=== PATIENT | male | born 1980 | race Caucasian/White ===

== ENCOUNTER 2023-10-30 13:33 | Emergency (ER) | payer OTHER, SELFPAY ==
[2023-10-30 13:34] VITALS: BP 134/93; PULSE 85; RESP 18; TEMP 36.8; O2SAT 98; BMI 29.8
[2023-10-30 14:39] LABS: Basophils # 0.2 K/mm3 (0-0.2); Basophils % 2.8 % (0.1-2.0); Eosinophils # 0.2 K/mm3 (0.0-0.4); Eosinophils % 2.3 % (0.1-12.0); Hematocrit 50.4 % (42.0-52.0); Hemoglobin 16.5 g/dL (14.1-18.0); Lymphocytes # 2.1 K/mm3 (0.7-4.5); Lymphocytes % 30.4 % (10-50); Mean Corpuscular HGB Conc 32.7 g/dL (31.8-35.4); Mean Corpuscular Hemoglobin 31.5 pg (27.0-31.2); Mean Corpuscular Volume 96.5 fl (80-94); Mean Platelet Volume 8.4 fl (7.4-10.4); Monocytes # 0.4 K/mm3 (0.1-1.0); Monocytes % 5.7 % (1.7-9.3); Neutrophils % 58.9 % (37.0-80.0); Platelet Count 220 K/mm3 (142-424); Red Blood Count 5.23 M/mm3 (4.60-6.20); Red Cell Distribution Width 13.3 % (11.5-17.5); White Blood Count 6.8 K/mm3 (4.8-10.8)
[2023-10-30 14:41] LABS: Chloride 105 mmol/L (98-107); Potassium 4.1 mmoL/L (3.5-5.1); Sodium 140 mmol/L (136-145)
[2023-10-30 14:43] LABS: Blood Urea Nitrogen 26 mg/dl (9-20); Creatinine Clearance Estimated 123 mL/min (50-200); Estimated Glomerular Filt Rate 73 ml/min (>60); GFR (African American) 89 ML/MIN (>60)
[2023-10-30 14:44] LABS: Alanine Aminotransferase 214 U/L (12-78); Albumin Level 4.4 g/dl (3.5-5.0); Albumin/Globulin Ratio 1.1 (1.1-1.8); Alkaline Phosphatase 63 U/L (38-126); Anion Gap 8.1 mEq/L (5-15); Aspartate Amino Transferase 119 U/L (17-59); Bilirubin,Total 0.3 mg/dl (0.2-1.3); Calcium 9.9 mg/dl (8.4-10.2); Carbon Dioxide 31 mmol/L (22.0-30.0); Globulin 3.9 g/dL (1.3-3.2); Glucose 105 mg/dl (74-100); Total Protein,Serum 8.3 g/dl (6.3-8.2)
--- NOTE | 2023-10-30 15:38 | HMH.EDGENADL ---
Discharge Plan Disposition Patient Disposition: Home, Self-Care Prescriptions Prescriptions: New sulfamethoxazole-trimethoprim [Bactrim DS] 800-160 mg tablet 1 tab PO BID 5 Days Qty: 10 0RF No Action sulfamethoxazole-trimethoprim 1 EACH tablet 1 ea PO BID nystatin 500,000 UNIT/5 ML suspension 4 - 6 ml PO QID Qty: 240 0RF Rx Instructions: 4-6ml Po QID for 10 days. Swish and hold in mouth as long as possible and spit out azithromycin [Zithromax] 250 MG tablet 250 mg PO UD DOSE PK Qty: 6 0RF Rx Instructions: Take two (2) tablets today, then one (1) tablet days #2 thru #5 prednisone 10 MG tablets,dose pack 10 mg PO UD DOSE PK Qty: 21 0RF Rx Instructions: taper dose pack as directed Referrals Follow up/Referrals: Provider,Referral, MD [Primary Care Provider] - See instructions Activity Restrictions/Add. Instructions Additional Instructions/Restrictions: Call your family doctor to establish care for this visit to the emergency department and schedule follow-up within 48 hours to ensure improvement. If you have any worsening of your condition or any other concerning signs or symptoms, return to the emergency department or your primary care doctor for further evaluation. Clinical Impressions Clinical Impression: Cellulitis of right thigh Instructions Patient Instructions: DI for Skin Abscess Discharge ED Provider: Dean Schultz General Adult HPI General Chief complaint: Skin/Abscess/Foreign Body Stated complaint: spider bite Time Seen by Provider: 10/30/23 15:01 Mode of Arrival: Ambulatory Source of Information: Patient Limitations: No Limitations Description of Symptoms (Recalled from ER Triage Doc. by RN): pt presents to the ER for a spider bite on his R thigh that happened about 3 days ago, he states it is warm to touch and swollen, denies any fevers, states its about the size of a half dollar History of Present Illness HPI narrative: 43-year-old male history of HIV currently on antiretroviral therapy, previous IV drug abuse clean for 10 years with no history of cardiac involvement or bloodstream infections presenting with spider bite to his right lateral thigh. Started 3 to 4 days prior to this visit. Has been getting more and more swollen, is now red, tender, has not drained. No fevers or chills, nausea or vomiting, or any other sores. Please note that above description of symptoms, in this electronic medical record under categorization of recalled from ER triage doctor by RN are reflective of an initial nursing assessment, however, is not reflective of my full history and physical exam that was personally taken and clarified. Consequentially, this preceding description of symptoms, which may include the patient's categorized chief complaint in the EMR, do not reflect my personal clinical impression, and the ultimate description of history of present illness and patient stated complaints should be deferred to this section of the note. Unless stated otherwise or congruent with this section of the note, additional signs, symptoms, or incongruence should be interpreted as inaccurate with my clinical impression. Related Data Home Medications Medication Instructions Recorded Confirmed sulfamethoxazole 800 1 ea PO BID skin abscess 04/28/18 04/28/18 mg-trimethoprim 160 mg tablet Previous Rx's Medication Instructions Recorded azithromycin 250 mg tablet 250 mg PO UD DOSE PK #6 tabs 04/28/18 (Zithromax) nystatin 100,000 unit/mL oral 4 - 6 ml PO QID ##240 04/28/18 suspension prednisone 10 mg tablets in a dose 10 mg PO UD DOSE PK ##21 04/28/18 pack sulfamethoxazole 800 1 tab PO BID 5 days #10 tabs 10/29/ mg-trimethoprim 160 mg tablet (Bactrim DS) Allergies Allergy/AdvReac Type Severity Reaction Status Date / Time No Known Allergies Allergy Verified 04/28/18 14:09 [facility] Disclaimer: The information contained in this section may have been updated after the patient was seen, as this information can be updated by other users. Social History Smoking Status: Current every day smoker alcohol intake: never current occupational status: unemployed Travel in the last 8 weeks: None ROS Obtained: Yes All systems reviewed & no additional complaints except as documented Physical Exam General General appearance: alert and in no apparent distress Head Head exam: atraumatic and normocephalic Eye Eye exam: Present normal appearance, PERRL and EOMI ENT ENT exam: Present mucous membranes moist Neck Neck exam: Present normal inspection, full ROM and trachea midline Respiratory Respiratory exam: Absent respiratory distress, wheezes, stridor, accessory muscle use or prolonged expiratory phase Cardiovascular Cardiovascular exam: Present normal rhythm Abdominal Exam Abdominal exam: Present soft; Absent distention, tenderness, guarding, rebound or rigidity Extremities Exam Extremities exam: Present other (1 cm area of induration right proximal/lateral thigh. Surrounding cellulitis. Minimally tender); Absent edema Neurological Exam Neurological exam: Present alert, oriented X3, CN II-XII intact and normal gait; Absent motor sensory deficit Skin Skin exam: Present warm and dry; Absent diaphoresis or erythema Medical Decision Making Medical Records Medical records reviewed: Yes I reviewed the patient's medical records. [place] Inquiry Pt receiving controlled substance: No [place] was queried for this patient: No Vital Signs: 10/30/23 13:34 Temperature 98.2 F Temperature Source Oral Pulse Rate [Left Radial] 85 Respiratory Rate 18 Blood Pressure [Right Arm] 134/93 H Blood Pressure Mean [Right Arm] 106 Blood Pressure Source [Right Arm] Automatic Cuff Blood Pressure Position [Right Arm] Sitting 02 Sat by Pulse Oximetry 98 Oxygen Delivery Method Room Air Lab Data Lab Results 10/30/23 14:20: WBC 6.8, RBC 5.23, Hgb 16.5, Hct 50.4, MCV 96.5 H, MCH 31.5 H, MCHC 32.7, RDW 13.3, Plt Count 220, MPV 8.4, Neut % (Auto) 58.9, Lymph % (Auto) 30.4, [place] % (Auto) 5.7, Eos % (Auto) 2.3, Baso % (Auto) 2.8 H, Neut # (Auto) 4.0, Lymph # (Auto) 2.1, [place] # (Auto) 0.4, Eos # (Auto) 0.2, Baso # (Auto) 0.2, Sodium 140, Potassium 4.1, Chloride 105, Carbon Dioxide 31 H, Anion Gap 8.1, BUN 26 H, Creatinine 1.10, Estimated Creat Clear 123, Estimated GFR 73, Est GFR ( Amer) 89, Glucose 105 H, Calcium 9.9, Total Bilirubin 0.3, AST 119 H, ALT 214 H, Alkaline Phosphatase 63, Total Protein 8.3 H, Albumin 4.4, Globulin 3.9 H, Albumin/Globulin Ratio 1.1 10/30/23 14:20 10/30/23 14:20 Orders (Tests/Meds): ORDERS Category Date Time Status POCUS Point of Care (ER Only) Stat Exams 10/30/23 15:40 Ordered Complete Blood Count Auto Diff Stat Lab 10/30/23 14:20 Completed Comprehensive Metabolic Panel Stat Lab 10/30/23 14:20 Completed Blood Culture Stat Micro 10/30/23 14:20 Received Medical Decision Narrative: 43-year-old male history of HIV currently on antiretroviral therapy, previous IV drug abuse clean for 10 years with no history of cardiac involvement or bloodstream infections presenting with spider bite to his right lateral thigh. Started 3 to 4 days prior to this visit. Has been getting more and more swollen, is now red, tender, has not drained. No fevers or chills, nausea or vomiting, or any other sores. It should be noted that patient does have HIV, recently restarted his antiretroviral therapy, does not know if it is at goal, this is likely complicating care. History was obtained via conversation with patient. On arrival, patient hemodynamically stable, alert, oriented x4, appropriate, GCS 15, moving all extremities spontaneously, pupils equal and reactive to light. Full physical exam performed and significant for he does have a small subcentimeter area of induration on the right anterior lateral thigh with surrounding erythema concerning for possible abscess with cellulitis. No obvious fluctuance.. Differential includes cellulitis, abscess, among others. Bedside [id number] ultrasound was performed and negative for any acute abscess needing drained. He does have surrounding cellulitis. Because of this, patient deemed appropriate for outpatient management with Bactrim. Because patient at baseline without signs or symptoms of clinical decompensation, deemed appropriate for discharge. Results were relayed to patient who voiced understanding and were agreeable to outpatient management and follow up. I discussed my clinical impression with patient and answered all questions. At this time, the evidence for any other entities in the differential is insufficient to warrant any further testing or ED observation. This was explained as well. Advisory was given that persistent or worsening symptoms require further evaluation. I confirmed the understanding of this discussion. Regarding social determinants of health, patient states that he does have follow-up at [facility] for his HIV. Critical Care Critical Care Time Critical Care Time: No
--- NOTE | 2023-10-30 15:56 | PC.NURSE ---
pt resting in chair. call light within reach. no needs voiced at this time.
[2023-10-30 16:26] VITALS: BP 135/93; PULSE 68; RESP 18; TEMP 36.8; O2SAT 96
--- NOTE | 2023-11-04 04:23 | PC.NURSE ---
prelim blood cx pending. will assign to hospitalist for continuity of care.
== END 2023-10-30 16:26 | disposition home or self-care (01) ==
PROVIDERS: Emergency Medicine; Emergency Provider Emergency Medicine
DX: L03.115 Cellulitis of right lower limb (principal); B20 Human immunodeficiency virus [HIV] disease; F17.210 Nicotine dependence, cigarettes, uncomplicated; W57.XXXA Bitten or stung by nonvenomous insect and other nonvenomous arthropods, initial encounter
CPT/HCPCS: 80053; 85025; 87040; 99283

== ENCOUNTER 2023-10-30 21:51 | Observation (INO) | payer OTHER, SELFPAY ==
[2023-10-30 21:52] VITALS: BP 130/92; PULSE 120; RESP 20; TEMP 36.9; O2SAT 98; BMI 29.8
[2023-10-30 22:00] VITALS: BP 118/80; PULSE 122; PULSE 125; RESP 18; O2SAT 96; O2SAT 98
[2023-10-30] MEDS: diphenhydrAMINE 50MG/ML VIAL 25 MG IV (22:15)
[2023-10-30] MEDS: DEXAMETHASONE 4MG/ML 1ML VIAL 10 MG IV (22:15)
[2023-10-30] MEDS: ONDANSETRON 4MG/2ML VIAL 4 MG IV (22:16)
[2023-10-30 22:17] LABS: Basophils % 0.8 % (0.1-2.0); Eosinophils % 0.8 % (0.1-12.0); Hemoglobin 17.6 g/dL (14.1-18.0); Lymphocytes # 0.8 K/mm3 (0.7-4.5); Lymphocytes % 16.2 % (10-50); Mean Corpuscular Hemoglobin 31.6 pg (27.0-31.2); Mean Corpuscular Volume 98.9 fl (80-94); Mean Platelet Volume 7.6 fl (7.4-10.4); Monocytes # 0.1 K/mm3 (0.1-1.0); Monocytes % 1.8 % (1.7-9.3); Neutrophils % 80.5 % (37.0-80.0); Platelet Count 230 K/mm3 (142-424); Red Blood Count 5.56 M/mm3 (4.60-6.20); Red Cell Distribution Width 13.3 % (11.5-17.5)
[2023-10-30 22:20] LABS: Chloride 103 mmol/L (98-107); Potassium 3.6 mmoL/L (3.5-5.1); Sodium 141 mmol/L (136-145)
[2023-10-30 22:22] LABS: Blood Urea Nitrogen 25 mg/dl (9-20); Creatinine Clearance Estimated 123 mL/min (50-200); Estimated Glomerular Filt Rate 73 ml/min (>60); GFR (African American) 89 ML/MIN (>60); Lactic Acid 1.7 mmol/L (0.7-2.1)
[2023-10-30 22:23] LABS: Alanine Aminotransferase 217 U/L (12-78); Albumin Level 4.6 g/dl (3.5-5.0); Alkaline Phosphatase 71 U/L (38-126); Anion Gap 11.6 mEq/L (5-15); Aspartate Amino Transferase 120 U/L (17-59); Bilirubin,Total 0.5 mg/dl (0.2-1.3); Calcium 10.1 mg/dl (8.4-10.2); Carbon Dioxide 30 mmol/L (22.0-30.0); Globulin 4.4 g/dL (1.3-3.2); Glucose 121 mg/dl (74-100)
[2023-10-30 22:30] VITALS: BP 99/65; PULSE 85; RESP 16; TEMP 36.9; O2SAT 97
[2023-10-30 22:31] VITALS: BP 99/65; PULSE 89; O2SAT 97
--- NOTE | 2023-10-30 22:33 | HMH.EDGENADL ---
Discharge Plan Disposition Patient Disposition: Admitted Condition: Good Clinical Impressions Clinical Impression: Cellulitis Discharge ED Provider: Dean Schultz General Adult HPI <Dean Schultz MD - Last Filed: 10/30/23 23:25> General Chief complaint: Nausea/Vomiting/Diarrhea Stated complaint: SOA,Weak,vomiting,FUENTES,HBP Time Seen by Provider: 10/30/23 21:55 Mode of Arrival: Wheelchair Source of Information: Patient Limitations: No Limitations Description of Symptoms (Recalled from ER Triage Doc. by RN): Pt seen earlier today in ER for spider bite, given Bactrium. Pt states he took a dose and laid down for nap when he awoke he was very shaky, weak, had an episode of vomiting, headache and intermittent SOA. Pt does not hace any drug allergies he is aware of. History of Present Illness HPI narrative: 43-year-old male history of HIV currently on antiretroviral therapy presenting for general malaise. Patient states that after he was seen by me earlier today, 10/29, he went home. Picked up his medications. He has taken Bactrim before. Took Bactrim, Motrin, lay down to go to sleep. He woke up feeling very unwell. Family at bedside states that he was shaky when he came to his room, got him to an to the emergency department. Patient denies chest pain, abdominal pain, diarrhea, constipation, fevers or chills, cough, difficulty breathing, face or throat swelling. He has had 1 episode of nonbloody, nonbilious vomiting, is not drinking alcohol. Please note that above description of symptoms, in this electronic medical record under categorization of recalled from ER triage doctor by RN are reflective of an initial nursing assessment, however, is not reflective of my full history and physical exam that was personally taken and clarified. Consequentially, this preceding description of symptoms, which may include the patient's categorized chief complaint in the EMR, do not reflect my personal clinical impression, and the ultimate description of history of present illness and patient stated complaints should be deferred to this section of the note. Unless stated otherwise or congruent with this section of the note, additional signs, symptoms, or incongruence should be interpreted as inaccurate with my clinical impression. Related Data Home Medications Medication Instructions Recorded Confirmed sulfamethoxazole 800 1 ea PO BID skin abscess 04/28/18 04/28/18 mg-trimethoprim 160 mg tablet Previous Rx's Medication Instructions Recorded azithromycin 250 mg tablet 250 mg PO UD DOSE PK #6 tabs 04/28/18 (Zithromax) nystatin 100,000 unit/mL oral 4 - 6 ml PO QID ##240 04/28/18 suspension prednisone 10 mg tablets in a dose 10 mg PO UD DOSE PK ##21 04/28/18 pack sulfamethoxazole 800 1 tab PO BID 5 days #10 tabs 10/30/23 mg-trimethoprim 160 mg tablet (Bactrim DS) Allergies Allergy/AdvReac Type Severity Reaction Status Date / Time No Known Allergies Allergy Verified 04/28/18 14:09 PFSH <Dean Schultz MD - Last Filed: 10/30/23 23:25> [facility] Disclaimer: The information contained in this section may have been updated after the patient was seen, as this information can be updated by other users. Social History (Updated 10/30/23 @ 16:20 by Dean Schultz MD) Smoking Status: Current every day smoker alcohol intake: never current occupational status: unemployed Travel in the last 8 weeks: None <Dean Schultz MD - Last Filed: 10/30/23 23:25> ROS Obtained: Yes All systems reviewed & no additional complaints except as documented Physical Exam <Dean Schultz MD - Last Filed: 10/30/23 23:25> General General appearance: alert and in no apparent distress Head Head exam: atraumatic and normocephalic Eye Eye exam: Present normal appearance, PERRL and EOMI ENT ENT exam: Present mucous membranes moist Neck Neck exam: Present normal inspection, full ROM and trachea midline Respiratory Respiratory exam: Absent respiratory distress, wheezes, stridor, accessory muscle use or prolonged expiratory phase Cardiovascular Cardiovascular exam: Present normal rhythm Abdominal Exam Abdominal exam: Present soft; Absent distention, tenderness, guarding, rebound or rigidity Extremities Exam Extremities exam: Absent edema Neurological Exam Neurological exam: Present alert, oriented X3, CN II-XII intact and normal gait; Absent motor sensory deficit Skin Skin exam: Present warm, dry and erythema (Diffuse); Absent diaphoresis Medical Decision Making <Dean Schultz MD - Last Filed: 10/30/23 23:25> Medical Records Medical records reviewed: Yes I reviewed the patient's medical records. Jaiden Inquiry Pt receiving controlled substance: No Jaiden was queried for this patient: No Vital Signs: 10/30/23 21:52 10/30/23 22:00 10/30/23 22:00 Temperature 98.4 F Temperature Source Oral Pulse Rate 122 H 125 H Pulse Rate [Left] 120 H Respiratory Rate 20 18 Blood Pressure 118/80 118/80 Blood Pressure [Right Arm] 130/92 H Blood Pressure Mean [Right Arm] 104 Blood Pressure Source Blood Pressure Source [Right Arm] Automatic Cuff Blood Pressure Position Blood Pressure Position [Right Arm] Sitting 02 Sat by Pulse Oximetry 98 96 98 Oxygen Delivery Method Room Air 10/30/23 22:30 10/30/23 22:31 10/30/23 23:00 Temperature 98.4 F Temperature Source Oral Pulse Rate 85 89 87 Pulse Rate [Left] Respiratory Rate 16 Blood Pressure 99/65 L 99/65 L 91/61 L Blood Pressure [Right Arm] Blood Pressure Mean [Right Arm] Blood Pressure Source Blood Pressure Source [Right Arm] Blood Pressure Position Sitting Blood Pressure Position [Right Arm] 02 Sat by Pulse Oximetry 97 97 95 Oxygen Delivery Method Room Air 10/30/23 23:30 10/30/23 23:30 10/31/23 00:00 Temperature Temperature Source Pulse Rate 91 H 97 H 95 H Pulse Rate [Left] Respiratory Rate 16 Blood Pressure 105/63 L 105/63 L 102/63 L Blood Pressure [Right Arm] Blood Pressure Mean [Right Arm] Blood Pressure Source Blood Pressure Source [Right Arm] Blood Pressure Position Supine Blood Pressure Position [Right Arm] 02 Sat by Pulse Oximetry 99 97 98 Oxygen Delivery Method 10/31/23 00:14 10/31/23 00:31 10/31/23 01:12 Temperature 98.4 F Temperature Source Oral Pulse Rate 80 979 H Pulse Rate [Left] Respiratory Rate 16 16 Blood Pressure 102/63 L 93/63 L 99/66 L Blood Pressure [Right Arm] Blood Pressure Mean [Right Arm] Blood Pressure Source Automatic Cuff Blood Pressure Source [Right Arm] Blood Pressure Position Supine Blood Pressure Position [Right Arm] 02 Sat by Pulse Oximetry 97 89 L Oxygen Delivery Method Room Air Room Air 10/31/23 01:15 Temperature Temperature Source Pulse Rate 100 H Pulse Rate [Left] Respiratory Rate Blood Pressure 99/66 L Blood Pressure [Right Arm] Blood Pressure Mean [Right Arm] Blood Pressure Source Blood Pressure Source [Right Arm] Blood Pressure Position Blood Pressure Position [Right Arm] 02 Sat by Pulse Oximetry 99 Oxygen Delivery Method Lab Data Lab Results 10/30/23 22:05: WBC 5.0 D, RBC 5.56, Hgb 17.6, Hct 55.0 H, MCV 98.9 H, MCH 31.6 H, MCHC 32.0, RDW 13.3, Plt Count 230, MPV 7.6, Neut % (Auto) 80.5 H, Lymph % (Auto) 16.2, [place] % (Auto) 1.8, Eos % (Auto) 0.8, Baso % (Auto) 0.8, Neut # (Auto) 4.0, Lymph # (Auto) 0.8, [place] # (Auto) 0.1, Eos # (Auto) 0.0, Baso # (Auto) 0.0, Sodium 141, Potassium 3.6, Chloride 103, Carbon Dioxide 30, Anion Gap 11.6, BUN 25 H, Creatinine 1.10, Estimated Creat Clear 123, Estimated GFR 73, Est GFR ( Amer) 89, Glucose 121 H, Lactate 1.7, Calcium 10.1, Total Bilirubin 0.5, AST 120 H, ALT 217 H, Alkaline Phosphatase 71, Total Protein 9.0 H, Albumin 4.6, Globulin 4.4 H, Albumin/Globulin Ratio 1.0 L 10/30/23 22:05 10/30/23 22:05 Orders (Tests/Meds): ED MEDICATIONS Generic Name Dose Route Start Last Admin Trade Name Freq PRN Reason Stop Dose Admin Belladonna Alkaloids 60 ml 10/31/23 01:28 10/31/23 01:29 Belladonna Alkaloids 60 Ml Ml PO 10/31/23 01:29 60 ml ONCE ONE Administration Gabapentin 600 mg 10/31/23 02:30 10/31/23 02:37 Gabapentin 600mg Tablet PO 11/30/23 08:59 600 mg TID PRN Administration Moderate to Severe Pain (4-10) Miscellaneous 1 each 10/31/23 02:45 Vancomycin Consult Request NOTAPPLIC 11/30/23 02:44 CONSULT PHARMACY COUNT INCLUDES THE [facility] Ondansetron HCl 4 mg 10/31/23 02:49 Ondansetron 4mg/2ml Vial IV 11/30/23 02:48 Q6HP PRN Nausea Discontinued Medications Generic Name Dose Route Start Last Admin Trade Name Gaudencio PRN Reason Stop Dose Admin Dexamethasone Sodium Phosphate 10 mg 10/30/23 22:11 10/30/23 22:15 Dexamethasone 4mg/Ml 1ml Vial IV 10/30/23 22:12 10 mg ONCE ONE Administration Diphenhydramine HCl 25 mg 10/30/23 22:11 10/30/23 22:15 Diphenhydramine 50mg/Ml Vial IV 10/30/23 22:12 25 mg ONCE ONE Administration Lactated Ringer's 1,000 mls @ 999 mls/hr 10/30/23 23:07 10/30/23 23:09 Lactated Ringer's 1000 Ml Bag IV 10/31/23 00:07 999 mls/hr .Q1H1M ONE Administration Lactated Ringer's 1,000 mls @ 999 mls/hr 10/31/23 00:48 10/31/23 01:05 Lactated Ringer's 1000 Ml Bag IV 10/31/23 01:48 999 mls/hr .Q1H1M ONE Administration Ondansetron HCl 4 mg 10/30/23 22:11 10/30/23 22:16 Ondansetron 4mg/2ml Vial IV 10/30/23 22:12 4 mg ONCE ONE Administration ORDERS Category Date Time Status XR femur RT 2V Stat Exams 10/31/23 00:52 Completed Basic Metabolic Panel AMLAB Lab 10/31/23 06:00 Ordered CBC w/Auto Diff [Complete Blood Count Auto Diff] Stat Lab 10/30/23 22:05 Completed CMP [Comprehensive Metabolic Panel] Stat Lab 10/30/23 22:05 Completed Complete Blood Count Auto Diff AMLAB Lab 10/31/23 06:00 Ordered Lactic Acid Stat Lab 10/30/23 22:05 Completed Blood Culture Stat Micro 10/31/23 01:10 Received Medical Decision Narrative: 43-year-old male history of HIV currently on antiretroviral therapy presenting for general malaise. Patient states that after he was seen by me earlier today, 10/29, he went home. Picked up his medications. He has taken Bactrim before. Took Bactrim, Motrin, lay down to go to sleep. He woke up feeling very unwell. Family at bedside states that he was shaky when he came to his room, got him to an to the emergency department. Patient denies chest pain, abdominal pain, diarrhea, constipation, fevers or chills, cough, difficulty breathing, face or throat swelling. He has had 1 episode of nonbloody, nonbilious vomiting, is not drinking alcohol. History was obtained via conversation with patient and family. On arrival, patient hemodynamically stable, alert, oriented x4, appropriate, GCS 15, moving all extremities spontaneously, pupils equal and reactive to light. Full physical exam performed and significant for anxious appearing male who is in no acute distress. He does have diffuse erythematous skin. Lungs are clear to auscultation bilaterally, no evidence of stridor. No evidence of angioedema. Abdomen is soft, nontender, nondistended. No overlying skin changes otherwise. Tachycardic, hypertensive. Differential includes adverse medication reaction, medication interaction, acute viral syndrome, anxiety, among others. Patient was given fluids, Benadryl Decadron for symptomatic management and correction of underlying abnormalities. Workup independently interpreted and significant for nonactionable CBC, stable chemistry from earlier today. Mildly elevated LFTs. Patient was given fluids as well. Prior to reevaluation after medication effect, care handed off to oncoming physician. <Adrienne Tyler, DO - Last Filed: 10/31/23 03:05> Vital Signs: 10/30/23 21:52 10/30/23 22:00 10/30/23 22:00 Temperature 98.4 F Temperature Source Oral Pulse Rate 122 H 125 H Pulse Rate [Left] 120 H Respiratory Rate 20 18 Blood Pressure 118/80 118/80 Blood Pressure [Right Arm] 130/92 H Blood Pressure Mean [Right Arm] 104 Blood Pressure Source Blood Pressure Source [Right Arm] Automatic Cuff Blood Pressure Position Blood Pressure Position [Right Arm] Sitting 02 Sat by Pulse Oximetry 98 96 98 Oxygen Delivery Method Room Air 10/30/23 22:30 10/30/23 22:31 10/30/23 23:00 Temperature 98.4 F Temperature Source Oral Pulse Rate 85 89 87 Pulse Rate [Left] Respiratory Rate 16 Blood Pressure 99/65 L 99/65 L 91/61 L Blood Pressure [Right Arm] Blood Pressure Mean [Right Arm] Blood Pressure Source Blood Pressure Source [Right Arm] Blood Pressure Position Sitting Blood Pressure Position [Right Arm] 02 Sat by Pulse Oximetry 97 97 95 Oxygen Delivery Method Room Air 10/30/23 23:30 10/30/23 23:30 10/31/23 00:00 Temperature Temperature Source Pulse Rate 91 H 97 H 95 H Pulse Rate [Left] Respiratory Rate 16 Blood Pressure 105/63 L 105/63 L 102/63 L Blood Pressure [Right Arm] Blood Pressure Mean [Right Arm] Blood Pressure Source Blood Pressure Source [Right Arm] Blood Pressure Position Supine Blood Pressure Position [Right Arm] 02 Sat by Pulse Oximetry 99 97 98 Oxygen Delivery Method 10/31/23 00:14 10/31/23 00:31 10/31/23 01:12 Temperature 98.4 F Temperature Source Oral Pulse Rate 80 979 H Pulse Rate [Left] Respiratory Rate 16 16 Blood Pressure 102/63 L 93/63 L 99/66 L Blood Pressure [Right Arm] Blood Pressure Mean [Right Arm] Blood Pressure Source Automatic Cuff Blood Pressure Source [Right Arm] Blood Pressure Position Supine Blood Pressure Position [Right Arm] 02 Sat by Pulse Oximetry 97 89 L Oxygen Delivery Method Room Air Room Air 10/31/23 01:15 Temperature Temperature Source Pulse Rate 100 H Pulse Rate [Left] Respiratory Rate Blood Pressure 99/66 L Blood Pressure [Right Arm] Blood Pressure Mean [Right Arm] Blood Pressure Source Blood Pressure Source [Right Arm] Blood Pressure Position Blood Pressure Position [Right Arm] 02 Sat by Pulse Oximetry 99 Oxygen Delivery Method Lab Data Lab Results 10/30/23 22:05: WBC 5.0 D, RBC 5.56, Hgb 17.6, Hct 55.0 H, MCV 98.9 H, MCH 31.6 H, MCHC 32.0, RDW 13.3, Plt Count 230, MPV 7.6, Neut % (Auto) 80.5 H, Lymph % (Auto) 16.2, [place] % (Auto) 1.8, Eos % (Auto) 0.8, Baso % (Auto) 0.8, Neut # (Auto) 4.0, Lymph # (Auto) 0.8, [place] # (Auto) 0.1, Eos # (Auto) 0.0, Baso # (Auto) 0.0, Sodium 141, Potassium 3.6, Chloride 103, Carbon Dioxide 30, Anion Gap 11.6, BUN 25 H, Creatinine 1.10, Estimated Creat Clear 123, Estimated GFR 73, Est GFR ( Amer) 89, Glucose 121 H, Lactate 1.7, Calcium 10.1, Total Bilirubin 0.5, AST 120 H, ALT 217 H, Alkaline Phosphatase 71, Total Protein 9.0 H, Albumin 4.6, Globulin 4.4 H, Albumin/Globulin Ratio 1.0 L Orders (Tests/Meds): ED MEDICATIONS Generic Name Dose Route Start Last Admin Trade Name Freq PRN Reason Stop Dose Admin Belladonna Alkaloids 60 ml 10/31/23 01:28 10/31/23 01:29 Belladonna Alkaloids 60 Ml Ml PO 10/31/23 01:29 60 ml ONCE ONE Administration Gabapentin 600 mg 10/31/23 02:30 10/31/23 02:37 Gabapentin 600mg Tablet PO 11/30/23 08:59 600 mg TID PRN Administration Moderate to Severe Pain (4-10) Miscellaneous 1 each 10/31/23 02:45 Vancomycin Consult Request NOTAPPLIC 11/30/23 02:44 CONSULT PHARMACY COUNT INCLUDES THE [facility] Ondansetron HCl 4 mg 10/31/23 02:49 Ondansetron 4mg/2ml Vial IV 11/30/23 02:48 Q6HP PRN Nausea Discontinued Medications Generic Name Dose Route Start Last Admin Trade Name Freq PRN Reason Stop Dose Admin Dexamethasone Sodium Phosphate 10 mg 10/30/23 22:11 10/30/23 22:15 Dexamethasone 4mg/Ml 1ml Vial IV 10/30/23 22:12 10 mg ONCE ONE Administration Diphenhydramine HCl 25 mg 10/30/23 22:11 10/30/23 22:15 Diphenhydramine 50mg/Ml Vial IV 10/30/23 22:12 25 mg ONCE ONE Administration Lactated Ringer's 1,000 mls @ 999 mls/hr 10/30/23 23:07 10/30/23 23:09 Lactated Ringer's 1000 Ml Bag IV 10/31/23 00:07 999 mls/hr .Q1H1M ONE Administration Lactated Ringer's 1,000 mls @ 999 mls/hr 10/31/23 00:48 10/31/23 01:05 Lactated Ringer's 1000 Ml Bag IV 10/31/23 01:48 999 mls/hr .Q1H1M ONE Administration Ondansetron HCl 4 mg 10/30/23 22:11 10/30/23 22:16 Ondansetron 4mg/2ml Vial IV 10/30/23 22:12 4 mg ONCE ONE Administration ORDERS Category Date Time Status XR femur RT 2V Stat Exams 10/31/23 00:52 Completed Basic Metabolic Panel AMLAB Lab 10/31/23 06:00 Ordered CBC w/Auto Diff [Complete Blood Count Auto Diff] Stat Lab 10/30/23 22:05 Completed CMP [Comprehensive Metabolic Panel] Stat Lab 10/30/23 22:05 Completed Complete Blood Count Auto Diff AMLAB Lab 10/31/23 06:00 Ordered Lactic Acid Stat Lab 10/30/23 22:05 Completed Blood Culture Stat Micro 10/31/23 01:10 Received Medical Decision Narrative: 43-year-old male history of HIV currently on antiretroviral therapy presenting for general malaise. Patient states that after he was seen by me earlier today, 10/29, he went home. Picked up his medications. He has taken Bactrim before. Took Bactrim, Motrin, lay down to go to sleep. He woke up feeling very unwell. Family at bedside states that he was shaky when he came to his room, got him to an to the emergency department. Patient denies chest pain, abdominal pain, diarrhea, constipation, fevers or chills, cough, difficulty breathing, face or throat swelling. He has had 1 episode of nonbloody, nonbilious vomiting, is not drinking alcohol. History was obtained via conversation with patient and family. On arrival, patient hemodynamically stable, alert, oriented x4, appropriate, GCS 15, moving all extremities spontaneously, pupils equal and reactive to light. Full physical exam performed and significant for anxious appearing male who is in no acute distress. He does have diffuse erythematous skin. Lungs are clear to auscultation bilaterally, no evidence of stridor. No evidence of angioedema. Abdomen is soft, nontender, nondistended. No overlying skin changes otherwise. Tachycardic, hypertensive. Differential includes adverse medication reaction, medication interaction, acute viral syndrome, anxiety, among others. Patient was given fluids, Benadryl Decadron for symptomatic management and correction of underlying abnormalities. Workup independently interpreted and significant for nonactionable CBC, stable chemistry from earlier today. Mildly elevated LFTs. Patient was given fluids as well. Prior to reevaluation after medication effect, care handed off to oncoming physician. DO Jayson: On my assessment of the care for the patient, despite IV fluids and medications, patient has remained in sinus tachycardia with progressively decreasing blood pressures. He maintain maps greater than 65 on his own with no intervention, but he overall states that he is still feeling very bad. He complains of headaches, generalized bodyaches, chills, and nausea. I am concerned that though his labs are reassuring with only mild neutrophilic predominance, he could have systemic infection. Blood cultures were sent. Another bolus of IV fluids was ordered to complete sepsis bolus. Ultimately, feel that he would benefit from admission for continued monitoring given his persistent symptoms. I considered ordering antibiotics prior to admission, however he already took Bactrim just before coming in. Ultimately, I had an interactive discussion with the hospitalist, who admitted the patient for further evaluation and management. Critical Care <Dean Schultz MD - Last Filed: 10/30/23 23:25> Critical Care Time Critical Care Time: No
[2023-10-30 23:00] VITALS: BP 91/61; PULSE 87; O2SAT 95
[2023-10-30] MEDS: LACTATED RINGERS 1000ML 1,000 ML 999 ML IV (23:09)
[2023-10-30 23:30] VITALS: BP 105/63; PULSE 91; PULSE 97; RESP 16; O2SAT 97; O2SAT 99
[2023-10-31] VITALS (12 sets, daily range): BP systolic 93–117; BP diastolic 55–72; PULSE 80–979; RESP 16–18; TEMP 36.7–37.2; O2SAT 89–99; BMI 30.7; BMI 30.9
--- NOTE | 2023-10-31 00:52 | XR_ITS ---
PROCEDURE INFORMATION: Exam: XR Right Femur Exam date and time: 10/31/2023 12:55 AM Age: 43 years old Clinical indication: Cellulitis; Thigh; Right; Additional info: Cellulitis/infxn R thigh TECHNIQUE: Imaging protocol: Radiologic exam of the right femur. Views: 2 views. COMPARISON: No relevant prior studies available. FINDINGS: Bones/joints: Unremarkable. No acute fracture. Soft tissues: No soft tissue air or radiopaque foreign body identified. IMPRESSION: No acute findings.
[2023-10-31] MEDS: LACTATED RINGERS 1000ML 1,000 ML 999 ML IV (01:05)
[2023-10-31] MEDS: BELLADONNA ALKALOIDS 60 ML ML PO (01:29)
[2023-10-31] MEDS: GABAPENTIN 600MG TABLET 600 MG PO ×3 (02:37→20:00)
--- NOTE | 2023-10-31 02:50 | P.HP_ITS ---
History of Present Illness *Admission Date: 10/31/23 *Reason for visit:: cellulitis *History of present illness: 43 year old male presented to [facility] ED for c/o right thigh pain. He was seen early in the day and was dx with cellulitis and started on Bactrim. The pt returned to the ED due to feeling ill, shaky, and worse after taking his Bactrim. PMHX of IV drug use, HIV ( for hematology and therapy), and posttherpetic neuralgia. The pt had a bedside ultrasound performed with the first ED visit that did not demonstrate that the area of cellulitis had any abscess. Due to failing outpatient therapy, The ED physician consulted the hospitalist team for further medical management. The Pt was treated for a potential drug interaction from the Bactrim. The case was discussed in length with the ED provider. The pt's XRAY of his right femur reveals no soft tissue air or foreign body. The pt reports that the pain started three days ago. He believes it is from a spider bite. The area of the thigh is swollen with erythema. I admitted the pt to the medical surgical floor. The pt's blood cultures are pending. I will start the pt on IV vancomycin. The area of cellulitis has been marked. He ED lab workup BUN of 25, AST of 120, and ALT of 217. His lactate is 1.7 and his cbc is unremarkable. [facility] Disclaimer: The information contained in this section may have been updated after the patient was seen, as this information can be updated by other users. Social History (Updated 10/30/23 @ 16:20 by Dean Schultz MD) Smoking Status: Current every day smoker alcohol intake: never current occupational status: unemployed Travel in the last 8 weeks: None Review of Systems Review of Systems Review of systems:: pertinent systems reviewed and negative unless documented below Integumentary/Breasts Skin/Breast: Reports as per [facility] Meds Home Medications and Allergies Home Medications Medication Instructions Recorded Confirmed Type aspirin 81 mg capsule 81 mg PO DAILY 10/31/23 10/31/23 History bictegravir 50 mg-emtricitabine 1 tab PO DAILY HIV 10/31/23 10/31/23 History 200 mg-tenofovir alafenam 25 mg tablet (Biktarvy) gabapentin 600 mg tablet 600 mg PO TID NERVE PAIN 10/31/23 10/31/23 History New Prescriptions to Start Prescriptions: Allergies Allergy/AdvReac Type Severity Reaction Status Date / Time No Known Allergies Allergy Verified 04/28/18 14:09 Exam Data for Last 24 hours Vital signs and Labs for Last 24 Hours: Temp Pulse Resp BP Pulse Ox O2 Del Method 98.9 F 104 H 18 103/70 L 98 Room Air 10/31/23 01:49 10/31/23 01:49 10/31/23 01:49 10/31/23 01:49 10/31/23 02:29 10/31/23 02:29 Laboratory Results - last 24 hr 10/30/23 22:05: WBC 5.0 D, RBC 5.56, Hgb 17.6, Hct 55.0 H, MCV 98.9 H, MCH 31.6 H, MCHC 32.0, RDW 13.3, Plt Count 230, MPV 7.6, Neut % (Auto) 80.5 H, Lymph % (Auto) 16.2, Hutchinson % (Auto) 1.8, Eos % (Auto) 0.8, Baso % (Auto) 0.8, Neut # (Auto) 4.0, Lymph # (Auto) 0.8, Hutchinson # (Auto) 0.1, Eos # (Auto) 0.0, Baso # (Auto) 0.0, Sodium 141, Potassium 3.6, Chloride 103, Carbon Dioxide 30, Anion Gap 11.6, BUN 25 H, Creatinine 1.10, Estimated Creat Clear 123, Estimated GFR 73, Est GFR ( Amer) 89, Glucose 121 H, Lactate 1.7, Calcium 10.1, Total Bilirubin 0.5, AST 120 H, ALT 217 H, Alkaline Phosphatase 71, Total Protein 9.0 H, Albumin 4.6, Globulin 4.4 H, Albumin/Globulin Ratio 1.0 L I & O for Last 24 hours: Intake & Output 10/28/23 10/29/23 10/30/23 10/31/23 23:59 23:59 23:59 23:59 Output Total 350 / 350 Balance -350 / -350 Weight 99.79 kg 102.994 kg Constitutional Constitutional: no acute distress *Routine HEENT Exam Head: Present normocephalic Eye: Present EOMI ENT: Present mucous membranes moist *Routine Neck Exam Neck: Present supple and full ROM *Routine Respiratory Exam Respiratory: Present CTA bilaterally and symmetric chest movement *Routine Cardiovascular Exam Cardiovascular: Present tachycardia *Routine Abdominal Exam Abdominal: Present soft and normoactive bowel sounds; Absent tenderness *Routine Rectal Exam Rectal:: deferred *Routine Genitalia Exam Genitalia:: deferred *Routine Extremities Exam Extremities: Present full ROM *Routine Skin Exam Skin: Present intact and wounds (right thigh ) *Routine Neurological Exam Neurological: Present alert and oriented X3 Assessment and Plan *Assessment and plan (1) Cellulitis: Status: Acute Category: Medical Code(s): L03.90 - Cellulitis, unspecified (2) HIV (human immunodeficiency virus infection): Status: Acute Category: Medical Code(s): B20 - Human immunodeficiency virus [HIV] disease (3) Post-therapeutic neuralgia: Status: Acute Category: Medical Code(s): T88.8XXA - Other specified complications of surgical and medical care, not elsewhere classified, initial encounter; M79.2 - Neuralgia and neuritis, unspecified Plan 43 year old male presented to [facility] ED for c/o right thigh pain. He was seen early in the day and was dx with cellulitis and started on Bactrim. The pt returned to the ED due to feeling ill, shaky, and worse after taking his Bactrim. The Pt was treated for a potential drug interaction from the Bactrim in ED. The case was discussed in length with the ED provider. The area of the thigh is swollen with erythema. I admitted the pt to the medical surgical floor. The pt's blood cultures are pending. I will start the pt on IV vancomycin. The area of cellulitis has been marked. He received 2L of LR in the ED. Encourage oral hydration. Plan as to follow: CELLULITES -Pt believes spider bite three days prior -seen early in the day and was dx with cellulitis and started on Bactrim. Failed outpatient therapy -bedside ultrasound performed with the first ED visit that did not demonstrate that the area of cellulitis had any abscess -XRAY of his right femur reviewed and reveals no soft tissue air or foreign body -blood cultures are pending -Vancomycin IV -DUE TO PT HAVING IMPAIRED HOST DEFENSE FROM HIV, IVDU HX AND RECENT ANTIBIOTIC USE -lactate is 1.7 and his cbc is unremarkable -repeat cbc in the morning -Zofran and Motrin for fever, pain, nausea HIV POSTTHERAPEUTIC NEURALGIA -awaiting home med req -continue Gabapentin 600mg TID for posttherapeutic neuralgia FULL CODE REGULAR DIET DVT: SCD patient examined at bedside, cellulitis improving, continue IV abx
[2023-10-31] MEDS: VANCOMYCIN HCL 2,000 MG in 0.9 % SODIUM CHLORIDE 500 ML 166 MG IV (04:04)
--- NOTE | 2023-10-31 06:05 | PC.NURSE ---
Patient VSS, lungs are clear; has rested throughout night. Voices no concerns at this time.
[2023-10-31 07:09] LABS: Basophils # 0.1 K/mm3 (0-0.2); Monocytes # 0.5 K/mm3 (0.1-1.0); Red Cell Distribution Width 13.1 % (11.5-17.5)
[2023-10-31 07:10] LABS: Chloride 107 mmol/L (98-107); Potassium 4.4 mmoL/L (3.5-5.1); Sodium 135 mmol/L (136-145)
[2023-10-31 07:13] LABS: Anion Gap 8.4 mEq/L (5-15); Blood Urea Nitrogen 21 mg/dl (9-20); Carbon Dioxide 24 mmol/L (22.0-30.0); Creatinine Clearance Estimated 141 mL/min (50-200); Estimated Glomerular Filt Rate 82 ml/min (>60); GFR (African American) 99 ML/MIN (>60); Glucose 163 mg/dl (74-100)
[2023-10-31 07:33] LABS: Basophils % 0.3 % (0.1-2.0); Eosinophils % 0.2 % (0.1-12.0); Hematocrit 44.5 % (42.0-52.0); Lymphocytes # 0.8 K/mm3 (0.7-4.5); Lymphocytes % 5.1 % (10-50); Mean Corpuscular HGB Conc 31.7 g/dL (31.8-35.4); Mean Corpuscular Hemoglobin 30.8 pg (27.0-31.2); Mean Corpuscular Volume 97.2 fl (80-94); Monocytes % 3.2 % (1.7-9.3); Neutrophils # 13.6 K/mm3 (1.8-7.8); Neutrophils % 91.2 % (37.0-80.0); Platelet Count 205 K/mm3 (142-424); Red Blood Count 4.58 M/mm3 (4.60-6.20); White Blood Count 14.9 K/mm3 (4.8-10.8)
[2023-10-31 07:38] LABS: Hemoglobin 14.1 g/dL (14.1-18.0)
[2023-10-31 07:40] LABS: MANUAL DIFFERENTIAL MANUAL DIFFERENTIAL (MANUAL DIFF)
[2023-10-31] MEDS: IBUPROFEN 400 MG TABLET PO ×2 (08:10→19:57)
[2023-10-31 08:33] LABS: Lymphocytes % 5 % (10-50); Neutrophils % 95 % (42-76); Platelet Estimate Normal; RBC Morphology Normal; Total Cells Counted 100
--- NOTE | 2023-10-31 08:49 | PC.WOUNDNOTE ---
BITE PRESENT TO R UPPER THIGH. REDDENED, WARM, WITH BLACK CENTER AT SITE OF BITE. OUTLINED WITH MARKER PER STRIKE ON MACHINE OPERATOR.
--- NOTE | 2023-10-31 09:26 | P.CONPHA_ITS ---
Pharmacy Consult Date: 10/31/23 Time: 09:26 Referring provider: DR. BARR Reason for Consult:: VANCOMYCIN DOSING Allergies Allergy/AdvReac Type Severity Reaction Status Date / Time No Known Allergies Allergy Verified 04/28/18 14:09 Home Medications Medication Instructions Recorded Confirmed Type aspirin 81 mg capsule 81 mg PO DAILY 10/31/23 10/31/23 History bictegravir 50 mg-emtricitabine 1 tab PO DAILY HIV 10/31/23 10/31/23 History 200 mg-tenofovir alafenam 25 mg tablet (Biktarvy) gabapentin 600 mg tablet 600 mg PO TID NERVE PAIN 10/31/23 10/31/23 History New Prescriptions to Start Prescriptions: Height: 1.83 m Weight: 103.827 kg Laboratory Results:: Laboratory Results - last 24 hr 10/30/23 22:05: WBC 5.0 D, RBC 5.56, Hgb 17.6, Hct 55.0 H, MCV 98.9 H, MCH 31.6 H, MCHC 32.0, RDW 13.3, Plt Count 230, MPV 7.6, Neut % (Auto) 80.5 H, Lymph % (Auto) 16.2, Edmonson % (Auto) 1.8, Eos % (Auto) 0.8, Baso % (Auto) 0.8, Neut # (Auto) 4.0, Lymph # (Auto) 0.8, Edmonson # (Auto) 0.1, Eos # (Auto) 0.0, Baso # (Auto) 0.0, Sodium 141, Potassium 3.6, Chloride 103, Carbon Dioxide 30, Anion Gap 11.6, BUN 25 H, Creatinine 1.10, Estimated Creat Clear 123, Estimated GFR 73, Est GFR ( Amer) 89, Glucose 121 H, Lactate 1.7, Calcium 10.1, Total Bilirubin 0.5, AST 120 H, ALT 217 H, Alkaline Phosphatase 71, Total Protein 9.0 H, Albumin 4.6, Globulin 4.4 H, Albumin/Globulin Ratio 1.0 L 10/31/23 06:50: WBC 14.9 H D, RBC 4.58 L, Hgb 14.1 D, Hct 44.5, MCV 97.2 H, MCH 30.8, MCHC 31.7 L, RDW 13.1, Plt Count 205, MPV 8.0, Neut % (Auto) 91.2 H, Lymph % (Auto) 5.1 L, [place]on % (Auto) 3.2, Eos % (Auto) 0.2, Baso % (Auto) 0.3, Neut # (Auto) 13.6 H, Lymph # (Auto) 0.8, [place]monson # (Auto) 0.5, Eos # (Auto) 0.0, Baso # (Auto) 0.1, Total Counted 100, Neutrophils % (Manual) 95 H, Lymphocytes % (Manual) 5 L, Platelet Estimate Normal, RBC Morphology Normal, Sodium 135 L, Potassium 4.4 D, Chloride 107, Carbon Dioxide 24, Anion Gap 8.4, BUN 21 H, Creatinine 1.00, Estimated Creat Clear 141, Estimated GFR 82, Est GFR ( Amer) 99, Glucose 163 H D, Calcium 9.0 Assessment and Plan Assessment and plan all Dx Assessment and Plan for all problems:: Pharmacokinetic dosing service Objective: Patient: Floor: Age: 43 yo Serum creatinine: 1.00 mg/dL Height: 72.0 Inches Weight (kg): 103.8 Assessment: IBW (kg): 77.60 Dosing wt(kg): 103.8 Estimated Creatinine clearance (ml/min): 105.6 CRCL method: Cockcroft and Gault using ibw(default). Drug selected: Vancomycin Loading dose (mg): Vd (liters): 83.0 (factor used: 0.8 L/kg) Javier (hr-1): 0.092 Half life (hrs): 7.53 CLvanco=?? 7.636 L/hr Recommended dose: 2000 mg Interval: 12 hrs Infusion time (hrs): 2.0 Predicted peak (mcg/mL): 32.9 Predicted trough (mcg/mL): 13.11 Total body weight is being used for vancomycin dosing. Recommendations: Give Vancomycin 2000 mg q 12 hrs with an expected Cpeak of 32.9 mcg/ml and an expected Ctrough of 13.11 mcg/ml AUC 0-24 /KIM Data: KIM 0.5 mcg/mL:?? AUC/KIM:? 1047.7 KIM 1.0 mcg/mL:?? AUC/KIM:? 523.8 --------- KIM 1.5 mcg/mL:?? AUC/KIM:? 349.2 KIM 2.0 mcg/mL:?? AUC/KIM:? 261.9 Thank you for the consult, will continue to follow. -LENIN RODRIGUEZ, ANUD
--- NOTE | 2023-10-31 11:01 | HMH.PHAINT1 ---
Pharmacy Intervention Comments: MEDICATION RECONCILIATION COMPLETED ON PATIENT USING EXTERNAL FILL HISTORY FROM PHARMACY AND ANNE REPORT. -LENIN RODRIGUEZ, ANUD
[2023-10-31] MEDS: BICTEGRAV EMTRICIT TENOFOV ALA 1 EACH PO (11:29)
[2023-10-31] MEDS: VANCOMYCIN HCL 2,000 MG in 0.9 % SODIUM CHLORIDE 250 ML 125 MG IV (15:11)
--- NOTE | 2023-10-31 15:37 | PC.NURSE ---
pt has rested in bed throughout the shift. pt has been snacking and tolerating diet well this shift. pt has had no complaints today. call anne within reach.
[2023-10-31] MEDS: CALCIUM CARBONATE 500MG CHEWTAB 500 MG PO (19:57)
--- NOTE | 2023-11-01 02:57 | PC.NURSE ---
Pt is alert and oriented x4. Pt c/o heart burn and FUENTES and was treated per MAR. Pt denies vomiting,pain and all other needs. Spider bite on right thigh has no noted changes at this time.
[2023-11-01 04:00] VITALS: BP 114/58; PULSE 82; RESP 20; TEMP 36.4; O2SAT 97; BMI 31.5
[2023-11-01] MEDS: VANCOMYCIN HCL 2,000 MG in 0.9 % SODIUM CHLORIDE 250 ML 125 MG IV (04:22)
[2023-11-01] MEDS: IBUPROFEN 400 MG TABLET PO (04:24)
[2023-11-01 08:00] VITALS: BP 130/79; PULSE 76; RESP 18; TEMP 36.6; O2SAT 97
[2023-11-01] MEDS: GABAPENTIN 600MG TABLET 600 MG PO (08:00)
[2023-11-01] MEDS: BICTEGRAV EMTRICIT TENOFOV ALA 1 EACH PO (08:00)
--- NOTE | 2023-11-01 10:50 | EXP.DC.SUM ---
General Admission date:: 10/31/23 Discharge date: 11/01/23 HPI HPI HPI: 43 year old male presented to [facility] ED for c/o right thigh pain. He was seen early in the day and was dx with cellulitis and started on Bactrim. The pt returned to the ED due to feeling ill, shaky, and worse after taking his Bactrim. PMHX of IV drug use, HIV ( for hematology and therapy), and posttherpetic neuralgia. The pt had a bedside ultrasound performed with the first ED visit that did not demonstrate that the area of cellulitis had any abscess. Due to failing outpatient therapy, The ED physician consulted the hospitalist team for further medical management. The Pt was treated for a potential drug interaction from the Bactrim. The case was discussed in length with the ED provider. The pt's XRAY of his right femur reveals no soft tissue air or foreign body. The pt reports that the pain started three days ago. He believes it is from a spider bite. The area of the thigh is swollen with erythema. I admitted the pt to the medical surgical floor. The pt's blood cultures are pending. I will start the pt on IV vancomycin. The area of cellulitis has been marked. He ED lab workup BUN of 25, AST of 120, and ALT of 217. His lactate is 1.7 and his cbc is unremarkable. Hospital Course Hospital Course Hospital Course: 43 year old male presented to [facility] ED for c/o right thigh pain. He was seen early in the day and was dx with cellulitis and started on Bactrim. The pt returned to the ED due to feeling ill, shaky, and worse after taking his Bactrim. The Pt was treated for a potential drug interaction from the Bactrim in ED. The case was discussed in length with the ED provider. The area of the thigh is swollen with erythema. I admitted the pt to the medical surgical floor. The pt's blood cultures are pending. I will start the pt on IV vancomycin. The area of cellulitis has been marked. He received 2L of LR in the ED. Encourage oral hydration. Plan as to follow: CELLULITES - improved - dc on doxycline HIV POSTTHERAPEUTIC NEURALGIA -continue Gabapentin 600mg TID for posttherapeutic neuralgia Exam Data for Last 24 hours Vital signs and Labs for Last 24 Hours: Temp Pulse Resp BP Pulse Ox O2 Del Method 97.8 F 76 18 130/79 97 Room Air 11/01/23 08:00 11/01/23 08:00 11/01/23 08:00 11/01/23 08:00 11/01/23 08:00 11/01/23 09:00 I & O for Last 24 hours: Intake & Output 10/29/23 10/30/23 10/31/23 11/01/23 23:59 23:59 23:59 23:59 Intake Total 2100 / 2100 360 / 360 Output Total 650 / 650 0 / 0 Balance 1450 / 1450 360 / 360 Weight 99.79 kg 103.827 kg 105.687 kg Constitutional Constitutional: no acute distress *Routine HEENT Exam Head: Present normocephalic Eye: Present EOMI and PERRL ENT: Present mucous membranes moist *Routine Neck Exam Neck: Present supple; Absent lymphadenopathy *Routine Respiratory Exam Respiratory: Present CTA bilaterally *Routine Cardiovascular Exam Cardiovascular: Present RRR *Routine Abdominal Exam Abdominal: Present soft and normoactive bowel sounds; Absent tenderness *Routine Extremities Exam Extremities: Absent cyanosis, clubbing or edema *Routine Skin Exam Skin: Present warm; Absent rash *Routine Neurological Exam Neurological: Present alert and oriented X3 DS: Diagnosis Discharge Diagnosis (1) Cellulitis: Status: Acute Code(s): L03.90 - Cellulitis, unspecified (2) HIV (human immunodeficiency virus infection): Status: Acute Code(s): B20 - Human immunodeficiency virus [HIV] disease (3) Post-therapeutic neuralgia: Status: Acute Code(s): T88.8XXA - Other specified complications of surgical and medical care, not elsewhere classified, initial encounter; M79.2 - Neuralgia and neuritis, unspecified Meds Home Medications and Allergies Home Medications Medication Instructions Recorded Confirmed Type aspirin 81 mg capsule 81 mg PO DAILY 10/31/23 10/31/23 History bictegravir 50 mg-emtricitabine 1 tab PO DAILY HIV 10/31/23 10/31/23 History 200 mg-tenofovir alafenam 25 mg tablet (Biktarvy) gabapentin 600 mg tablet 600 mg PO TID NERVE PAIN 10/31/23 10/31/23 History doxycycline hyclate 100 mg tablet 100 mg PO BID #20 tabs 11/01/23 Rx doxycycline hyclate 100 mg tablet 100 mg PO BID 7 days #14 tabs 11/01/23 Rx New Prescriptions to Start Prescriptions: doxycycline hyclate Yuli Cardenas doxycycline hyclate Yuli Cardenas Allergies Allergy/AdvReac Type Severity Reaction Status Date / Time No Known Allergies Allergy Verified 04/28/18 14:09 Discharge Plan Disposition Patient Disposition: Home, Self-Care Condition: Good Follow up Plan Follow up with: Bandar Adam MD [Staff Physician] - Enter time for follow up (New Patient, please call Thursday and make a follow up appt.) Prescriptions/Medication Reconciliation: New doxycycline hyclate 100 mg tablet 100 mg PO BID Qty: 20 0RF doxycycline hyclate 100 mg tablet 100 mg PO BID 7 Days Qty: 14 0RF Continued gabapentin 600 mg Tablet 600 mg PO TID Biktarvy 50-200-25 mg Tablet 1 tab PO DAILY aspirin 81 mg Capsule 81 mg PO DAILY Problem Reconciliation Problems Reviewed?: Yes Patient Discharge Instructions ACTIVITY: Ambulate as tolerated DIET: continue same diet Patient Instructions: DI for Cellulitis -- Adult Providers Primary Care Provider: Provider,Referral Admit Provider: Yuli Cardenas Attending Provider: Yuli Cardenas
--- NOTE | 2023-11-02 14:08 | CARE MANAGER ---
Contacted patient related to hospital discharge. He did get his medication and is aware of need for follow up appointment. Denies questions or concerns. WALESKA Fung
== END 2023-11-01 10:53 | disposition home or self-care (01) ==
LOC: ER 10-31 00:53 → 2ND 10-31 04:40
PROVIDERS: Nurse Practitioner Critical Care Medicine; Admitting Provider Internal Medicine; Emergency Provider Emergency Medicine; Visit Provider Internal Medicine
DX: L03.115 Cellulitis of right lower limb (principal); B20 Human immunodeficiency virus [HIV] disease; W57.XXXA Bitten or stung by nonvenomous insect and other nonvenomous arthropods, initial encounter; T36.8X5A Adverse effect of other systemic antibiotics, initial encounter; T50.995A Adverse effect of other drugs, medicaments and biological substances, initial encounter; Z79.60 Long term (current) use of unspecified immunomodulators and immunosuppressants; Z79.899 Other long term (current) drug therapy; F17.210 Nicotine dependence, cigarettes, uncomplicated; B02.29 Other postherpetic nervous system involvement; F19.21 Other psychoactive substance dependence, in remission
CPT/HCPCS: 36415; 73552; 80048; 80053; 83605; 85007; 85025; 87040; 99285; G0378; J2405; J3370

== ENCOUNTER 2023-11-04 17:43 | Emergency (ER) | payer OTHER, SELFPAY ==
[2023-11-04 17:44] VITALS: BP 132/89; PULSE 95; RESP 20; TEMP 36.6; O2SAT 98; BMI 30.5
--- NOTE | 2023-11-04 17:49 | PC.NURSE ---
Tramaine Garvey PA-C at bedside
--- OUTSIDE RECORDS SUMMARY | 2023-11-04 17:51 | XMS_ITS | Continuity of Care Document ---
Author Name Unknown Address [address] [place] [phone] Organization [facility] Phone Care Team Providers Care Financial Sales Assistant Name Role Phone RYAN MONREAL Unavailable RYAN MONREAL Primary Attending NO, FAMILY P Primary Care Unavailable RYAN MONREAL Admitting ALLERGIES AND ADVERSE REACTIONS ALLERGIES AND ADVERSE REACTIONS Code System Allergy Substance Adverse Reaction Date Reaction (Severity) Comment Status Reported By Updated By No Known Allergies [id number] on October 20, 2023 6:48:22 PM UT MEDICATIONS HOME MEDICATIONS Status RXNORM NDC Medication Dose Route Frequency Dates Comments Reported By Updated By Patient not on Self-Medications [id number] on October 20, 2023 6:46:33 PM UT DISCHARGE MEDICATIONS Status RXNORM NDC Medication Dose Route Frequency Dates Comments Physician Updated By No Discharge Medication Info rmation Available INPATIENT MEDICATIONS Status RXNORM NDC Medication Dose Route Frequency Rat e Quantity Dates Comments Physician Updated By No Inpatient Medication Info rmation Available SOCIAL HISTORY SOCIAL HISTORY SNOMED-CT Social History Element Description Effective Dates Offered Cessation Comment UpdatedBy [id number] Smoking Status Unknown If Ever Smoked SOCIAL HISTORY - Gender Sex: Male SOCIAL HISTORY - Status : status i nformation is not available Intention in Next Year: intention information is not available SOCIAL HISTORY - Sexual Behavior Sexual Orientation Gender Identity SNOMED-CT Description SNO MED -CT Description Activity Level No of Partners Partner Type UpdatedBy Information is not available VITAL SIGNS PATIENT VITAL SIGNS This section displays the mo st recent value for each vital sign as of October 20, 2023 7:59:03 PM UTC Loinc Code Vital Sign Activity Date Result Updated By 8310-5 Body temperature October 20, 2023 6:00:00 PM UTC 98.2 [degF] [id number] on October 20, 2023 6:43:33 PM UTC 8462-4 Diastolic blood pressure October 20, 2023 6:00:00 PM UTC 87.0 mm[Hg] [id number] on October 20, 2023 6:43:33 PM UTC 8867-4 Heart rate October 20, 2023 6:45:00 PM UTC 66 /min [id number] on October 20, 2023 6:59:24 PM UTC 79143-9 Oxygen saturation in Arterial blood by Pulse oximetry October 20, 2023 6:45:00 PM UTC 96.0 % [id number] on October 20, 2023 6:59:24 PM UTC 9279-1 Respiratory rate October 20, 2023 6:00:00 PM UTC 16 /min [id number] on October 20, 2023 6:43:33 PM UTC 8480-6 Systolic blood pressure September 6:00:00 PM UTC 131.0 mm[Hg] [id number] on October 20, 2023 6:43:33 PM UTC PEDIATRIC GROWTH CHART - VITAL SIGNS This section displays Head C ircumference Percentile, Weight for Length Percentile and BMI Percentile Loinc Code Pediatric Measure Age (Months) Result Updat ed By No Pediatric Growth Chart Pe rcentile Information Available. HEALTH CONCERNS Problems Concern Status Health Concern problem infor mation not available. Smoking Status Status Years Used Consumed packs p er day Health Concern smoking histo ry information not available. Family History Concern Status Health Concern family histor y information not available. ENCOUNTERS ENCOUNTER INFORMATION Reason for Visit RASH Admission October 20, 2023 5:46:00 PM UTC [place] [id number] Discharge October 20, 2023 6:59:00 PM UTC DI SCHARGED TO HOME OR SELF CARE ENCOUNTER DIAGNOSES Notes information is not pina ilable. Code System Diagnosis Onset Date Diagnosis information is not available. ABSTRACT DIAGNOSES Code System Diagnosis Updated By Abstract Diagnosis informati on is not available. CARE TEAM Care Financial Sales Assistant Role RYAN MONREAL Referring RYAN MONREAL Primary Attending FAMILY NO Primary Care RYAN MONREAL Admitting CARE TEAM CARE manager cost Role on Team Status Start Date End Date Update d By NO FAMILY PHYSICIAN PCP normal September 6:50:36 PM UTC October 20, 2023 6:59:00 PM UTC [id number] on October 20, 2023 6:50:36 PM [facility] JOCELIN CHAN Referring normal September 6:50:36 PM UTC October 20, 2023 6:59:00 PM UTC [id number] on October 20, 2023 6:50:36 PM [facility] JOCELIN CHAN Attending normal September 6:50:36 PM UTC October 20, 2023 6:59:00 PM UTC [id number] on October 20, 2023 6:50:36 PM [place] JOCELIN CHAN Admitting normal September 6:50:36 PM UTC October 20, 2023 6:59:00 PM UTC [id number] on October 20, 2023 6:50:36 PM UTC
--- OUTSIDE RECORDS SUMMARY | 2023-11-04 17:51 | XMS_ITS | Continuity of Care Document ---
Author Name Unknown Address [address] [place] [id number] Organization [facility] Phone Care Team Providers Care Loom Setter Name Role Phone RYAN MONREAL Unavailable RYAN MONREAL Primary Attending NO, FAMILY P Primary Care Unavailable RYAN MONREAL Admitting ALLERGIES AND ADVERSE REACTIONS ALLERGIES AND ADVERSE REACTIONS Code System Allergy Substance Adverse Reaction Date Reaction (Severity) Comment Status Reported By Updated By No Known Allergies [id number] on October 20, 2023 6:48:22 PM [place] MEDICATIONS HOME MEDICATIONS Status RXNORM NDC Medication Dose Route Frequency Dates Comments Reported By Updated By Patient not on Self-Medications [id number] on October 20, 2023 6:46:33 PM UT [...] Description Effective Dates Offered Cessation Comment UpdatedBy [id number] Smoking Status Unknown If Ever Smoked SOCIAL [...] for each vital sign as of October 26, 2023 11:02:15 PM UTC Loinc Code Vital Sign Activity Date Result Updated By 8310-5 Body temperature October 20, 2023 6:00:00 PM UTC 98.2 [degF] [id number] on October 21, 2023 6:59:59 PM UTC 57586-5 Body weight Measured October 20 7:00:07 PM UTC 90.718 kg (200.0 lb) [id number] on October 21, 2023 7:00:07 PM UTC 8462-4 Diastolic blood pressure October 20, 2023 6:45:00 PM UTC 78.0 mm[Hg] [id number] on October 21, 2023 7:00:07 PM UTC 8867-4 Heart rate October 20, 2023 6:45:00 PM UTC 66 /min [id number] on October 21, 2023 7:00:07 PM UTC 93518-7 Oxygen saturation in Arterial blood by Pulse oximetry October 20, 2023 6:45:00 PM UTC 96.0 % [id number] on October 21, 2023 7:00:07 PM UTC 9279-1 Respiratory rate October 20, 2023 6:00:00 PM UTC 16 /min [id number] on October 21, 2023 6:59:59 PM UTC 8480-6 Systolic blood pressure October 20, 2023 6:45:00 PM UTC 111.0 mm[Hg] [id number] on October 21, 2023 7:00:07 PM UTC PEDIATRIC GROWTH CHART - VITAL [...] Admission October 20, 2023 5:46:00 PM UTC [place] [address] [address] Discharge October 20, 2023 6:59:00 PM UTC DI SCHARGED TO HOME OR SELF CARE ENCOUNTER DIAGNOSES Notes information is not pina ilable. Code System Diagnosis Onset Date Diagnosis information is not available. ABSTRACT DIAGNOSES Code System Diagnosis Updated By [email or web address] ICD10 RASH AND OTHER NONSPECIFIC S KIN ERUPTION [id number] on October 26, 2023 11:01:56 PM UT B02.29 ICD10 OTHER POSTHERPET IC NERVOUS SYSTEM INVOLVEMENT [id number] on October 26, 2023 11:01:56 PM UTC Z21 ICD10 ASYMPTOMATIC HUM AN IMMUNODEFICIENCY VIRUS [HIV] INFECTION STATUS [id number] on October 26, 2023 11:01:56 PM UTC F17.210 ICD10 NICOTINE DEPENDE NCE, CIGARETTES, UNCOMPLICATED [id number] on October 26, 2023 11:01:56 PM UTC CARE TEAM Care Loom Setter Role RYAN MONREAL Referring RYAN MONREAL Primary Attending FAMILY NO Primary Care RYAN MONREAL Admitting CARE TEAM CARE medical corps officer Role on Team Status Start Date End Date Update d By NO FAMILY PHYSICIAN PCP normal September 6:50:36 PM UTC October 20, 2023 6:59:00 PM UTC [id number] on October 20, 2023 6:50:36 PM UTC JOCELIN CHAN Referring normal September 6:50:36 PM UTC October 20, 2023 6:59:00 PM UTC [id number] on October 20, 2023 6:50:36 PM UTC JOCELIN CHAN Attending normal September 6:50:36 PM UTC October 20, 2023 6:59:00 PM UTC [id number] on October 20, 2023 6:50:36 PM UTC JOCELIN CHAN Admitting normal September 6:50:36 PM UTC October 20, 2023 6:59:00 PM UTC [id number] on October 20, 2023 6:50:36 PM UTC
--- NOTE | 2023-11-04 18:20 | HMH.EDGENADL ---
Discharge Plan Disposition Patient Disposition: Home, Self-Care Prescriptions Prescriptions: No Action gabapentin 600 mg Tablet 600 mg PO TID Biktarvy 50-200-25 mg Tablet 1 tab PO DAILY aspirin 81 mg Capsule 81 mg PO DAILY doxycycline hyclate 100 mg tablet 100 mg PO BID Qty: 20 0RF doxycycline hyclate 100 mg tablet 100 mg PO BID 7 Days Qty: 14 0RF Referrals Follow up/Referrals: John Lilly DO [Staff Physician] - See instructions Provider,MD Leda [Primary Care Provider] - See instructions Wilfredo Louis MD [Staff Physician] - See instructions Activity Restrictions/Add. Instructions Additional Instructions/Restrictions: At this time it was felt you are safe to be discharged home. If new or worsening symptoms please do not hesitate to return the emergency department. Please take your antibiotics as prescribed. Please call and schedule appoint with Dr. Louis, the surgeon, for continued evaluation. If you wish to establish care with a family doctor please call and schedule an appointment with Dr. Lilly. Clinical Impressions Clinical Impression: Abscess, Cellulitis Instructions Patient Instructions: DI for Skin Abscess Discharge ED Provider: Rad Urban General Adult HPI General Chief complaint: Skin/Abscess/Foreign Body Stated complaint: right leg pain, no known accident Time Seen by Provider: 11/04/23 17:45 Mode of Arrival: Ambulatory Source of Information: Patient Limitations: No Limitations Description of Symptoms (Recalled from ER Triage Doc. by RN): Patient reports he was admitted last week from a spider bite that was dx with cellulitis. Patient reports swelling has increased, tender to touch and does not look like it is getting better. Patient also reports just not feeling well at all. History of Present Illness HPI narrative: Patient is a 43-year-old male with past medical history of IV drug use (last use 10 years ago) recent admission for cellulitis secondary to spider bite who presents emergency department for worsening swelling, refractory outpatient antibiotic regimen. Patient was initially seen in the emergency department and diagnosed with cellulitis started on Bactrim, he returned feeling ill where he was admitted on vancomycin and transition to doxycycline and subsequently discharged this post recent Thursday. Since then patient has been compliant with his doxycycline however has not had improving symptoms. He has had worsening pain at the site, states that it is more red than it was before, has slightly expanded. He feels generally worse than when he left causing him to present here for continued evaluation. Related Data Home Medications Medication Instructions Recorded Confirmed aspirin 81 mg capsule 81 mg PO DAILY 10/31/23 10/31/23 bictegravir 50 mg-emtricitabine 1 tab PO DAILY HIV 10/31/23 10/31/23 200 mg-tenofovir alafenam 25 mg tablet (Biktarvy) gabapentin 600 mg tablet 600 mg PO TID NERVE PAIN 10/31/23 10/31/23 Previous Rx's Medication Instructions Recorded doxycycline hyclate 100 mg tablet 100 mg PO BID #20 tabs 11/01/23 doxycycline hyclate 100 mg tablet 100 mg PO BID 7 days #14 tabs 11/01/23 Allergies Allergy/AdvReac Type Severity Reaction Status Date / Time No Known Allergies Allergy Verified 04/28/18 14:09 [facility] Disclaimer: The information contained in this section may have been updated after the patient was seen, as this information can be updated by other users. Social History (Updated 10/30/23 @ 16:20 by Dean Schultz MD) Smoking Status: Current every day smoker alcohol intake: never current occupational status: unemployed Travel in the last 8 weeks: None ROS Obtained: Yes Systems reviewed as appropriate & no additional complaints except as documented Physical Exam General General appearance: alert and in no apparent distress Head Head exam: atraumatic and normocephalic Eye Eye exam: Present PERRL ENT ENT exam: Present mucous membranes moist Neck Neck exam: Present normal inspection Chest Chest inspection: Present normal inspection and symmetric chest wall rise Respiratory Respiratory exam: Absent respiratory distress Cardiovascular Cardiovascular exam: Present regular rate and normal rhythm Abdominal Exam Abdominal exam: Present soft Extremities Exam Extremities exam: Present other (Over the right thigh there is a circumferential area of indurated erythema with central eschar that is tender to palpation.) Neurological Exam Neurological exam: Present alert Psychiatric Psychiatric exam: Present normal affect Skin Skin exam: Present warm and dry Medical Decision Making Jaiden Inquiry Pt receiving controlled substance: No Vital Signs: 11/04/23 17:44 Temperature 97.8 F Temperature Source Oral Pulse Rate [Right Radial] 95 H Respiratory Rate 20 Blood Pressure [Right Arm] 132/89 Blood Pressure Mean [Right Arm] 103 Blood Pressure Source [Right Arm] Automatic Cuff Blood Pressure Position [Right Arm] Sitting 02 Sat by Pulse Oximetry 98 Oxygen Delivery Method Room Air Lab Data Lab Results 11/04/23 18:30: WBC 9.1, RBC 5.36, Hgb 17.1, Hct 51.7, MCV 96.4 H, MCH 31.8 H, MCHC 33.0, RDW 12.9, Plt Count 257, MPV 7.5, Neut % (Auto) 68.3, Lymph % (Auto) 22.6, [place] % (Auto) 5.9, Eos % (Auto) 1.5, Baso % (Auto) 1.7, Neut # (Auto) 6.2, Lymph # (Auto) 2.1, [place] # (Auto) 0.5, Eos # (Auto) 0.1, Baso # (Auto) 0.2, Sodium 136, Potassium 4.0, Chloride 101, Carbon Dioxide 31 H, Anion Gap 8.0, BUN 23 H, Creatinine 1.00, Estimated Creat Clear 139, Estimated GFR 82, Est GFR ( Amer) 99, Glucose 94, Calcium 9.7, Total Bilirubin 0.5, AST 76 H, ALT 155 H, Alkaline Phosphatase 69, C-Reactive Protein 1.4, Total Protein 8.5 H, Albumin 4.3, Globulin 4.2 H, Albumin/Globulin Ratio 1.0 L 11/04/23 18:30 11/04/23 18:30 Orders (Tests/Meds): ED MEDICATIONS Discontinued Medications Generic Name Dose Route Start Last Admin Trade Name Freq PRN Reason Stop Dose Admin Acetaminophen 1,000 mg 11/04/23 18:24 11/04/23 18:29 Acetaminophen 325mg/10.15ml Udc PO 11/04/23 18:25 Not Given ONCE ONE Acetaminophen 1,000 mg 11/04/23 18:29 11/04/23 18:29 Acetaminophen 500mg Tab PO 11/04/23 18:30 1,000 mg ONCE ONE Administration Lactated Ringer's 1,000 mls @ 999 mls/hr 11/04/23 18:18 11/04/23 18:25 Lactated Ringer's 1000 Ml Bag IV 11/04/23 19:18 999 mls/hr .Q1H1M ONE Administration Dalbavancin 1,500 mg/ Dextrose 250 mls @ 500 mls/hr 11/04/23 19:19 11/04/23 20:27 IV 11/04/23 19:20 500 mls/hr ONCE ONE Administration Ketorolac Tromethamine 30 mg 11/04/23 18:18 11/04/23 18:25 Ketorolac 30mg/Ml Vial IV 11/04/23 18:19 30 mg ONCE ONE Administration Lidocaine/Epinephrine 10 ml 11/04/23 19:39 Lidocaine 1% W/Epi 1:100,000 20ml Vial SQ 11/04/23 19:40 ONCE ONE ORDERS Category Date Time Status POCUS Point of Care (ER Only) Stat Exams 11/04/23 18:19 Ordered CBC w/Auto Diff [Complete Blood Count Auto Diff] Stat Lab 11/04/23 18:30 Completed CMP [Comprehensive Metabolic Panel] Stat Lab 11/04/23 18:30 Completed CRP [C-Reactive Protein] Stat Lab 11/04/23 18:30 Completed Blood Culture Stat Micro 11/04/23 18:30 Ordered Medical Decision Narrative: In summary patient is a 43-year-old male with past medical history described above presents emergency department for evaluation of proximal extremity cellulitis and induration in the setting of recent spider bite with past medical history of HIV on antiretroviral therapy. Patient is hemodynamically stable nontoxic-appearing upon arrival, afebrile. Differential diagnosis includes refractory cellulitis, abscess, among others. Workup will be conducted with hematologic labs, guhlm-[id number] ultrasound, blood culture. Initial inventions include Tylenol, Toradol, crystalloid bolus. Workup reviewed by me, hematologic labs are nonactionable, patient has improved leukocytosis, no KULWINDER or critical electrolyte abnormality, downtrending transaminitis. Gsmpc-fg-[id number] ultrasound was done at bedside which shows abscess. Given this patient underwent I&D at bedside with success. Dose of dalbavancin was given in the ER and patient will continue to take his doxycycline as prescribed and will follow-up with Dr. Louis and Dr. Lilly on an outpatient basis. Procedure: Procedure performed was incision and drainage. Location was right lateral proximal hip. 8 cc of 1% lidocaine with epinephrine was administered in a ring block as well as into the most fluctuant area of abscess. Anesthesia achieved. Using an 11 blade scalpel an approximately 2 cm linear incision was made, abscess was deloculated with curved Kellys and purulence approximately 3 cc was expressed. Wound was packed with iodinated gauze. Patient tolerated the procedure well. There were no immediate complications. Procedures Miscellaneous Procedure Procedure Performed: Indication: Soft tissue redness and swelling Identified structures: Location: Right proximal lateral hip soft tissue Findings: Abscess with area of mixed echogenicity and surrounding cobblestoning consistent with surrounding cellulitis Impression: Abscess and cellulitis of soft tissue Images were to permanent archive The study was technically adequate Soft Tissue CPT Codes: CPT Neck: 28811-77 CPT Upper extremity: 49738-95 CPT Axilla: 70433-63 CPT Chest wall: 48435-55 CPT Breast: 68674-31-RK/LT (complete), 57769-00-KB/LT (limited), CPT Upper Back: 56126-16 CPT Lower Back: 45548-62 CPT Abdominal Wall: 33270-28 CPT Pelvic Wall: 30561-63 CPT Lower Extremity: 87674-92 CPT Other Soft Tissue: 67165-52 This study was performed by me, and I personally interpreted all images/videos. Based on my clinical judgement, these images were [adequate/inadequate] and [did/did not] necessitate further imaging. Critical Care Critical Care Time Critical Care Time: No
[2023-11-04] MEDS: LACTATED RINGERS 1000ML 1,000 ML 999 ML IV (18:25)
[2023-11-04] MEDS: KETOROLAC 30MG/ML VIAL 30 MG IV (18:25)
[2023-11-04] MEDS: ACETAMINOPHEN 500MG TAB 1000 MG PO (18:29)
[2023-11-04 18:43] LABS: Basophils # 0.2 K/mm3 (0-0.2); Basophils % 1.7 % (0.1-2.0); Eosinophils # 0.1 K/mm3 (0.0-0.4); Eosinophils % 1.5 % (0.1-12.0); Hematocrit 51.7 % (42.0-52.0); Hemoglobin 17.1 g/dL (14.1-18.0); Lymphocytes # 2.1 K/mm3 (0.7-4.5); Lymphocytes % 22.6 % (10-50); Mean Corpuscular Hemoglobin 31.8 pg (27.0-31.2); Mean Corpuscular Volume 96.4 fl (80-94); Mean Platelet Volume 7.5 fl (7.4-10.4); Monocytes # 0.5 K/mm3 (0.1-1.0); Monocytes % 5.9 % (1.7-9.3); Neutrophils # 6.2 K/mm3 (1.8-7.8); Neutrophils % 68.3 % (37.0-80.0); Platelet Count 257 K/mm3 (142-424); Red Blood Count 5.36 M/mm3 (4.60-6.20); Red Cell Distribution Width 12.9 % (11.5-17.5); White Blood Count 9.1 K/mm3 (4.8-10.8)
[2023-11-04 18:47] LABS: Chloride 101 mmol/L (98-107); Sodium 136 mmol/L (136-145)
[2023-11-04 18:50] LABS: Alanine Aminotransferase 155 U/L (12-78); Albumin Level 4.3 g/dl (3.5-5.0); Alkaline Phosphatase 69 U/L (38-126); Aspartate Amino Transferase 76 U/L (17-59); Bilirubin,Total 0.5 mg/dl (0.2-1.3); Blood Urea Nitrogen 23 mg/dl (9-20); Carbon Dioxide 31 mmol/L (22.0-30.0); Creatinine Clearance Estimated 139 mL/min (50-200); Estimated Glomerular Filt Rate 82 ml/min (>60); GFR (African American) 99 ML/MIN (>60); Globulin 4.2 g/dL (1.3-3.2); Total Protein,Serum 8.5 g/dl (6.3-8.2)
[2023-11-04 18:51] LABS: Calcium 9.7 mg/dl (8.4-10.2); Glucose 94 mg/dl (74-100)
[2023-11-04 18:56] LABS: C-Reactive Protein 1.4 mg/L (0-4)
[2023-11-04] MEDS: DALBAVANCIN HCL 1,500 MG in DEXTROSE 5 % IN WATER 250 ML 500 MG IV (20:27)
--- NOTE | 2023-11-04 21:10 | PC.NURSE ---
Per MD Urban, only need one set of blood cultures.
[2023-11-04 21:11] VITALS: BP 121/85; PULSE 72; RESP 18; TEMP 36.6; O2SAT 96
--- NOTE | 2023-11-10 01:27 | PC.NURSE ---
no growth noted at 48 hours on blood cultures
== END 2023-11-04 21:21 | disposition home or self-care (01) ==
PROVIDERS: Emergency Provider Emergency Medicine
DX: L02.415 Cutaneous abscess of right lower limb (principal); L03.115 Cellulitis of right lower limb; F17.210 Nicotine dependence, cigarettes, uncomplicated
CPT/HCPCS: 10060; 80053; 85025; 86140; 87040; 96361; 96374; 96375; 99284; J0875

== ENCOUNTER 2023-11-06 08:06 | Outpatient (CLI) | payer OTHER, SELFPAY | END 2023-11-06 23:59 | LOC: LAB.DROPOF 11-08 08:06 | PROVIDERS: PCP Family Medicine; Visit Provider Family Medicine | DX: L03.115 Cellulitis of right lower limb (principal); B95.62 Methicillin resistant Staphylococcus aureus infection as the cause of diseases classified elsewhere | CPT/HCPCS: 87070; 87205 ==

== ENCOUNTER 2023-11-16 10:47 | Emergency (ER) | payer OTHER, SELFPAY ==
[2023-11-16 10:48] VITALS: BP 145/105; PULSE 88; RESP 15; TEMP 36.7; O2SAT 100; BMI 29.8
--- NOTE | 2023-11-16 11:01 | ECG_ITS ---
APPROVED REPORT Exam: Resting ECG HR:86 bpm ECG Measurements Heart Rate 86 AXES W[place] 154 P 66 QRSd 89 QRS 94 QT 348 T 73 QTc 392 Conclusion SINUS RHYTHM BORDERLINE RIGHT AXIS DEVIATION [QRS AXIS > 90] BORDERLINE ECG UNCONFIRMED REPORT Electronically signed by : Tani Kellogg, 11/16/2023 15:23:51
--- NOTE | 2023-11-16 11:05 | PC.NURSE ---
attempted multiple IV, unsuccessful at this time, Abdoul RN/HS aware that US IV needed and blood
--- NOTE | 2023-11-16 11:16 | PC.NURSE ---
DR GARDNER AT BS FOR PT EVAL
--- NOTE | 2023-11-16 11:37 | XR_ITS ---
FINAL REPORT CLINICAL HISTORY: dyspnea FINDINGS: A single view of the chest was obtained. The heart is normal in size. The mediastinum is unremarkable. The lungs are clear. There is no pleural effusion. There is no pneumothorax. There is no acute osseous abnormality. IMPRESSION: No acute cardiopulmonary process. Reviewed, Interpreted and Dictated by Josué Thornton MD Transcribed by Perla Bains Authenticated and [facility]
--- NOTE | 2023-11-16 11:40 | HMH.EDGENADL ---
Discharge Plan Disposition Patient Disposition: Home, Self-Care Prescriptions Prescriptions: No Action clindamycin HCl 300 mg capsule 300 mg PO Q8H 7 Days Qty: 21 0RF gabapentin 600 mg Tablet 600 mg PO TID Biktarvy 50-200-25 mg Tablet 1 tab PO DAILY Referrals Follow up/Referrals: John Lilly DO [Staff Physician] - See instructions Provider,Referral, [Primary Care Provider] - See instructions Activity Restrictions/Add. Instructions Additional Instructions/Restrictions: No definitive evidence of a significant drug reaction. Additional no alternative explanation for your symptoms today. No emergent medical condition identified. Please follow-up closely with your infectious disease doctor and a new referral has also been made to Dr. John Lilly to establish primary care here in [facility]. Return with any significant worsening of her symptoms as discussed. Clinical Impressions Clinical Impression: Myalgia, Hepatitis C, HIV (human immunodeficiency virus infection), Chills, Non compliance w medication regimen Discharge ED Provider: Michelle Kellogg General Adult HPI General Chief complaint: Allergic Reaction Stated complaint: chills. headache, sweating,soa Time Seen by Provider: 11/16/23 11:23 Mode of Arrival: Wheelchair Source of Information: Patient Limitations: No Limitations Description of Symptoms (Recalled from ER Triage Doc. by RN): pt reports to ED with c/o possible allergic reaction. pt reports that he took the first dose of bactrim this morning around 0700 for a spider bite on his right leg. pt reports approx 0800 he began to have shortness of breath and weakness. History of Present Illness HPI narrative: Is a 43-year-old male with a history of HIV and hepatitis C presents today with shaking chills and diffuse body pain. Been in the hospital for diagnosis of cellulitis and an abscess in the right lateral thigh. Patient has a history of remote HIV diagnosed in 2019 he has been noncompliant with his medications since that time states that he did recently reinitiate his Biktarvy 2 months ago. However he has not followed up with his primary care doctor or an infectious disease doctor has no idea what his viral load or CD4 count is. Believes that he still has active hepatitis C. Has not used injection drugs for 10 years. Denies any active drug use or withdrawal. His abscess was cultured and did grow staph that was multidrug-resistant including to doxycycline and Bactrim. He was recently started on Bactrim yesterday and states that after his first dose this when he started feeling his symptoms however he has not had any rash respiratory symptoms or any other allergic type symptoms. Related Data Home Medications Medication Instructions Recorded Confirmed bictegravir 50 mg-emtricitabine 1 tab PO DAILY HIV 10/31/23 11/06/23 200 mg-tenofovir alafenam 25 mg tablet (Biktarvy) gabapentin 600 mg tablet 600 mg PO TID NERVE PAIN 10/31/23 11/06/23 Previous Rx's Medication Instructions Recorded clindamycin HCl 300 mg capsule 300 mg PO Q8H 7 days #21 caps 11/16/23 Allergies Allergy/AdvReac Type Severity Reaction Status Date / Time No Known Allergies Allergy Verified 11/06/23 15:20 [facility] Disclaimer: The information contained in this section may have been updated after the patient was seen, as this information can be updated by other users. Medical History Allergic reaction URI (upper respiratory infection) Oral candidiasis Social History Smoking Status: Current every day smoker alcohol intake: never current occupational status: unemployed Travel in the last 8 weeks: None ROS Obtained: Yes All systems reviewed & no additional complaints except as documented Physical Exam General General appearance: in distress and other (Appears very uncomfortable) Respiratory Respiratory exam: Present normal lung sounds bilaterally Cardiovascular Cardiovascular exam: Present tachycardia Abdominal Exam Abdominal exam: Present soft; Absent distention or tenderness Neurological Exam Neurological exam: Present alert and oriented X3 Medical Decision Making Jaiden Inquiry Pt receiving controlled substance: No Vital Signs: 11/16/23 10:48 Temperature 98.0 F Temperature Source Oral Pulse Rate [Left Radial] 88 Respiratory Rate 15 Blood Pressure [Right Arm] 145/105 H Blood Pressure Mean [Right Arm] 118 02 Sat by Pulse Oximetry 100 Oxygen Delivery Method Room Air Lab Data Lab results reviewed: Yes I reviewed the patient's lab results. Lab Results 11/16/23 11:10: WBC 5.5, RBC 5.49, Hgb 17.5, Hct 53.1 H, MCV 96.8 H, MCH 31.8 H, MCHC 32.9, RDW 13.2, Plt Count 189, MPV 7.7, Neut % (Auto) 77.4, Lymph % (Auto) 16.9, [place] % (Auto) 2.7, Eos % (Auto) 0.9, Baso % (Auto) 2.0, Neut # (Auto) 4.3, Lymph # (Auto) 0.9, [place] # (Auto) 0.2, Eos # (Auto) 0.1, Baso # (Auto) 0.1, PT 10.8, INR 1.00, APTT 25.6, Sodium 140, Potassium 4.1, Chloride 106, Carbon Dioxide 26, Anion Gap 12.1, BUN 19, Creatinine 0.90, Estimated Creat Clear 151, Estimated GFR 93, Est GFR ( Amer) 112, Glucose 101 H, Calcium 9.6, Total Bilirubin 1.1, AST 124 H, ALT 198 H, Alkaline Phosphatase 65, Lactate Dehydrogenase 281 L, Total Creatine Kinase 174 H, Troponin I < 0.01, Total Protein 9.6 H, Albumin 4.7, Globulin 4.9 H, Albumin/Globulin Ratio 1.0 L 11/16/23 12:00: Lactate 1.7 11/16/23 11:10 11/16/23 11:10 Orders (Tests/Meds): ED MEDICATIONS Discontinued Medications Generic Name Dose Route Start Last Admin Trade Name Freq PRN Reason Stop Dose Admin Acetaminophen 1,000 mg 11/16/23 11:37 11/16/23 12:10 Acetaminophen 1,000mg/100ml Vial IV 11/16/23 11:38 1,000 mg ONCE ONE Administration Lactated Ringer's 1,000 mls @ 999 mls/hr 11/16/23 11:45 11/16/23 12:10 Lactated Ringer's 1000 Ml Bag IV 11/16/23 12:45 999 mls/hr .Q1H1M FRITZ Administration Ketorolac Tromethamine 15 mg 11/16/23 11:37 11/16/23 12:10 Ketorolac 30mg/Ml Vial IV 11/16/23 11:38 15 mg ONCE ONE Administration Ondansetron HCl 4 mg 11/16/23 11:37 11/16/23 12:10 Ondansetron 4mg/2ml Vial IV 11/16/23 11:38 4 mg ONCE ONE Administration ORDERS Category Date Time Status CXR --portable [XR chest portable] Stat Exams 11/16/23 11:37 Completed CBC w/Auto Diff [Complete Blood Count Auto Diff] Stat Lab 11/16/23 11:10 Completed CK [Creatine Kinase] Stat Lab 11/16/23 11:10 Completed CMP [Comprehensive Metabolic Panel] Stat Lab 11/16/23 11:10 Completed LDH [Lactate Dehydrogenase] Stat Lab 11/16/23 11:10 Completed Lactic Acid Stat Lab 11/16/23 12:00 Completed PT/PTT Stat Lab 11/16/23 11:10 Completed Trop I [Troponin I] Stat Lab 11/16/23 11:10 Completed Troponin I Q3H Lab 11/16/23 14:45 Ordered Troponin I Q3H Lab 11/16/23 17:45 Ordered UA [Urinalysis and Microscopic] Stat Lab 11/16/23 11:37 Ordered Blood Culture Stat Micro 11/16/23 12:10 Received Medical Decision Narrative: Patient is a 43-year-old male present today with above history and physical. Given the fact that I do not know what his CD4 count or his viral load I do have a high suspicion that he may have very poorly controlled HIV and could be susceptible to opportunistic infections. Will get an LDH as a surrogate marker for CD4. Cultures and infectious workup have been initiated. Symptoms are otherwise nonspecific and he is shaking chills right now bacteremia certainly a possibility. Will reassess after this initial workup is complete. Reassessment 1:17 PM patient appears stable and much better on reassessment. Vital signs normal labs otherwise normal no definitive evidence of sepsis. Cannot definitively rule out bacteria and opportunistic infections but do not have any objective measurement to state that this patient has a low CD4 count. Of note patient's LDH is greater than 250 suggesting that he may not have a severely depressed CD4 but this is not specific rather more sensitive. I had extensive discussion with the patient and told him there is diagnostic uncertainty. There is nothing definitively to put him in the hospital for right now. His wound on his leg actually looks good. His staff culture and sensitivity was actually resistant to Bactrim and he believes that he had a significant drug reaction from his Bactrim so I advised that he stop this it does not seem clinically to be working anyway. Nor do I believe that he needs to continue antibiotics at this point. States that he has tried to get back into his infectious disease doctor strongly encouraged that he do that. Blood cultures are pending. I have also given him a referral to Dr. John Lilly and return precautions if he gets any worse or his symptoms recur. He was discharged in stable condition. Critical Care Critical Care Time Critical Care Time: No
[2023-11-16 11:49] LABS: Basophils # 0.1 K/mm3 (0-0.2); Chloride 106 mmol/L (98-107); Eosinophils # 0.1 K/mm3 (0.0-0.4); Eosinophils % 0.9 % (0.1-12.0); Hematocrit 53.1 % (42.0-52.0); Hemoglobin 17.5 g/dL (14.1-18.0); Lymphocytes # 0.9 K/mm3 (0.7-4.5); Lymphocytes % 16.9 % (10-50); Mean Corpuscular HGB Conc 32.9 g/dL (31.8-35.4); Mean Corpuscular Hemoglobin 31.8 pg (27.0-31.2); Mean Corpuscular Volume 96.8 fl (80-94); Mean Platelet Volume 7.7 fl (7.4-10.4); Monocytes # 0.2 K/mm3 (0.1-1.0); Monocytes % 2.7 % (1.7-9.3); Neutrophils # 4.3 K/mm3 (1.8-7.8); Neutrophils % 77.4 % (37.0-80.0); Platelet Count 189 K/mm3 (142-424); Red Blood Count 5.49 M/mm3 (4.60-6.20); Red Cell Distribution Width 13.2 % (11.5-17.5); White Blood Count 5.5 K/mm3 (4.8-10.8)
[2023-11-16 11:50] LABS: Potassium 4.1 mmoL/L (3.5-5.1); Sodium 140 mmol/L (136-145)
[2023-11-16 11:52] LABS: Alanine Aminotransferase 198 U/L (12-78); Aspartate Amino Transferase 124 U/L (17-59); Blood Urea Nitrogen 19 mg/dl (9-20); Creatinine Clearance Estimated 151 mL/min (50-200); Estimated Glomerular Filt Rate 93 ml/min (>60); GFR (African American) 112 ML/MIN (>60)
[2023-11-16 11:53] LABS: Activated Partial Thrombo Time 25.6 seconds (22.8-30.6); Albumin Level 4.7 g/dl (3.5-5.0); Alkaline Phosphatase 65 U/L (38-126); Anion Gap 12.1 mEq/L (5-15); Bilirubin,Total 1.1 mg/dl (0.2-1.3); Calcium 9.6 mg/dl (8.4-10.2); Carbon Dioxide 26 mmol/L (22.0-30.0); Creatine Kinase 174 U/L (55-170); Globulin 4.9 g/dL (1.3-3.2); Glucose 101 mg/dl (74-100); Prothrombin Time 10.8 seconds (10.1-12.5); Total Protein,Serum 9.6 g/dl (6.3-8.2)
[2023-11-16] MEDS: ONDANSETRON 4MG/2ML VIAL 4 MG IV (12:10)
[2023-11-16] MEDS: LACTATED RINGERS 1000ML 1,000 ML 999 ML IV (12:10)
[2023-11-16] MEDS: ACETAMINOPHEN 1,000MG/100ML VIAL 1000 MG IV (12:10)
[2023-11-16] MEDS: KETOROLAC 30MG/ML VIAL 15 MG IV (12:10)
[2023-11-16 12:17] LABS: Troponin I < 0.01 ng/ml (0.00-0.034)
[2023-11-16 12:25] LABS: Lactic Acid 1.7 mmol/L (0.7-2.1)
[2023-11-16 12:39] LABS: Lactate Dehydrogenase 281 U/L (313-618)
[2023-11-16 13:21] VITALS: BP 134/72; PULSE 94; RESP 15; TEMP 36.7
== END 2023-11-16 13:22 | disposition home or self-care (01) ==
PROVIDERS: Emergency Provider Student in an Organized Health Care Education/Training Program
DX: R06.02 Shortness of breath (principal); R53.1 Weakness; R68.83 Chills (without fever); M79.18 Myalgia, other site; B20 Human immunodeficiency virus [HIV] disease; B19.20 Unspecified viral hepatitis C without hepatic coma; F17.210 Nicotine dependence, cigarettes, uncomplicated
CPT/HCPCS: 36415; 71045; 80053; 82550; 83605; 83615; 84484; 85025; 85610; 85730; 87040; 93005; 96361; 96374; 96375; 99285; J0131; J2405

== ENCOUNTER 2023-12-16 11:12 | Outpatient (CLI) | payer OTHER, SELFPAY ==
[2023-12-16 18:49] LABS: Basophils # 0.1 K/mm3 (0-0.2); Eosinophils # 0.1 K/mm3 (0.0-0.4); Eosinophils % 2.7 % (0.1-12.0); Hematocrit 50.1 % (42.0-52.0); Hemoglobin 16.1 g/dL (14.1-18.0); Lymphocytes # 1.8 K/mm3 (0.7-4.5); Lymphocytes % 38.5 % (10-50); Mean Corpuscular HGB Conc 32.2 g/dL (31.8-35.4); Mean Corpuscular Hemoglobin 30.8 pg (27.0-31.2); Mean Corpuscular Volume 95.6 fl (80-94); Mean Platelet Volume 9.4 fl (7.4-10.4); Monocytes # 0.4 K/mm3 (0.1-1.0); Monocytes % 8.1 % (1.7-9.3); Neutrophils # 2.3 K/mm3 (1.8-7.8); Neutrophils % 48.7 % (37.0-80.0); Platelet Count 225 K/mm3 (142-424); Red Blood Count 5.24 M/mm3 (4.60-6.20); Red Cell Distribution Width 13.2 % (11.5-17.5); White Blood Count 4.6 K/mm3 (4.8-10.8)
[2023-12-16 19:41] LABS: Alanine Aminotransferase 109 U/L (12-78); Albumin Level 4.6 g/dl (3.5-5.0); Albumin/Globulin Ratio 1.2 (1.1-1.8); Alkaline Phosphatase 57 U/L (38-126); Anion Gap 15.2 mEq/L (5-15); Aspartate Amino Transferase 60 U/L (17-59); Bilirubin,Total 0.8 mg/dl (0.2-1.3); Blood Urea Nitrogen 26 mg/dl (9-20); Calcium 9.7 mg/dl (8.4-10.2); Carbon Dioxide 23 mmol/L (22.0-30.0); Chloride 105 mmol/L (98-107); Estimated Glomerular Filt Rate 82 ml/min (>60); GFR (African American) 99 ML/MIN (>60); Glucose 107 mg/dl (74-100); Potassium 4.2 mmoL/L (3.5-5.1); Sodium 139 mmol/L (136-145); Total Protein,Serum 8.6 g/dl (6.3-8.2)
[2023-12-18 12:34] LABS: Hep A Ab, Total Positive (Negative); Hep B Core Ab, Total Negative (Negative); Hep B Surface Ab, Qual Reactive (.)
[2023-12-21 18:40] LABS: HCV Genotype Charge YES; Hepatitis C Genotype 3 (.)
[2023-12-22 16:12] LABS: HIV 1 Ab Reactive (Non Reactive); HIV 2 Ab Non Reactive (Non Reactive); HIV Screen 4th Generation wRfx Preliminary Reactive (Non Reactive); HIV-1 Ab CHG YES; HIV-2 Ab CHG YES; Interpretation: HIV-1 Positive (.)
[2023-12-27 08:08] LABS: Hepatitis B Surface Antigen Negative; Hepatitis C Antibody Reactive
[2023-12-27 08:09] LABS: Fibrosis Score 0.49; Fibrosis Stage F2; Necroinflammat Activity Score 0.66
[2023-12-27 08:10] LABS: Alpha 2-Macroglobulins, Qn 377; Haptoglobin 60; Necroinflammat Activity Grade A3 SEVERE ACTIVITY
[2023-12-27 08:11] LABS: ALT (SGPT) P5P 105; Apolipoprotein A-1 157; Bilirubin, Total 0.3; GGT 54
== END 2023-12-16 23:59 | disposition home or self-care (01) ==
LOC: LAB.DROPOF 12-17 11:13
PROVIDERS: Visit Provider Family Medicine
DX: B19.20 Unspecified viral hepatitis C without hepatic coma (principal); Z11.4 Encounter for screening for human immunodeficiency virus [HIV]
CPT/HCPCS: 80053; 81596; 85025; 86701; 86702; 86703; 86704; 86706; 86708; 87340; 87380; 87522; 87902; G0432